=== PATIENT | female | born 1950 | race Caucasian/White ===

== ENCOUNTER 2016-04-03 17:15 | Inpatient (IN) | payer BC ==
--- NOTE | ~2016-04-03 | DS ---
Discharge Summary [facility] [address] [place]. [address] NAME: RACIEL WEBB : 50 STATUS : ADM IN [facility]#: [id number] AGE: 65 ADM/REG DATE : 04/03/16 MR#: [id number] REPORT SERV DATE: 04/08/16 DICTATED BY: RACHAEL NIETO DATE: 04/07/16 REPORT STATUS : Draft TRANSCRIBED BY: MODL DATE: 04/07/16 ADMISSION DATE: 04/03/2016 DISCHARGE DATE: PRINCIPAL DIAGNOSIS: Acute gastroenteritis with intractable nausea, vomiting, diarrhea, abdominal pain, and noncardiac chest pain. SECONDARY DIAGNOSES: 1. Iron-deficiency anemia. 2. Hypovolemia prior with subsequent mild volume overload, following volume resuscitation. 3. History of osteomyelitis. HISTORY OF PRESENT ILLNESS: Please see Dr. Carrero's dictation, 04/03/2016. HOSPITAL COURSE: The patient admitted with intractable nausea, vomiting, and diarrhea with dehydration. The patient received aggressive IV fluids, symptomatic care. Stool studies were all negative for pathogens, for white cells, for blood, parasites or C difficile. No further antibiotics were given. She still had issues with abdominal pain which was more impressive by symptom than by exam. CT exam it was done, which was entirely negative other than some noninfected diverticula. This study was done with contrast which tolerated well. Diet was very difficult to advance. Patient is also limited by some chest pain. Had a negative EKG, negative troponins and she was counseled regarding with the reproducibility of the pain at the presence of the active vomiting or retching anyway. This was felt to be a very low risk for cardiac disease in fact, the of the risk of false positive test on the stress test was actually far greater than true positive, therefore, making the risk of doing the test greater than the benefit, this was not further recommended. She actually was tolerating food well, had no further chest pain or abdominal pain. Did have some shortness of breath. Her Lasix was resumed. Diet was resumed at low-salt, GI soft. She was given some pain medicine and Phenergan to go home with for p.r.n. use and close followup with Dr. Falcon, her primary care provider. Lastly, she was found to be significantly iron deficient. She was guaiac negative but did receive intravenous iron while in the hospital, which she tolerated well. She had a colonoscopy in the past but was encouraged to follow up with Dr. Zayas in the next month or 2 for ongoing surveillance of that condition. She met the maximum benefit of hospitalization by 04/07/2016, who is good condition. DIET: GI soft diet. ACTIVITY: As tolerated. FOLLOWUP: Follow up Dr. Sammy Falcon and Dr. Umang Mcmullen in 1 to 2 months. RSM/TOMÁS Rachael Dunham Discharge Summary [address] [place]. [address] NAME: RACIEL WEBB : 50 STATUS : ADM IN [facility]#: [id number] AGE: 65 ADM/REG DATE : 04/03/16 MR#: [id number] REPORT SERV DATE: 04/08/16 DICTATED BY: RACHAEL NIETO DATE: 04/07/16 REPORT STATUS : Draft TRANSCRIBED BY: MODRadha DATE: 04/07/16 Marguerite Nieto / [id number] CC: Marguerite Crawley MD Sumeet Bhushan, M.D.
--- NOTE | ~2016-04-03 | HP ---
History And Physical [facility] [address] [place]. [address] NAME: RACIEL WEBB : 50 STATUS : ADM Senia PAT#: [id number] AGE: 65 ADM/REG DATE : 04/03/16 MR#: [id number] REPORT SERV DATE: 04/04/16 DICTATED BY: SERGE CARRERO DATE: 04/04/16 REPORT STATUS : Draft TRANSCRIBED BY: MODL DATE: 04/04/16 DATE OF ADMISSION: 04/03/2016 CHIEF COMPLAINT: Abdominal pain, nausea, vomiting, recently completing six weeks of vancomycin IV for osteomyelitis. HPI: The patient is a 65-year-old female with recent completion of vancomycin today for six weeks for osteomyelitis, history of atrial fibrillation, hypertension, thyroid disease, who presents after having initially a week of diarrhea episodes that improved after three days and restarted again approximately 48 hours ago that has been constant, moderate severity with multiple cramping quality. No radiation but associated with nausea, vomiting, diarrhea and has progressive weakness, fatigue, and sweating type episodes. There are no worsening symptoms, but no relieving symptoms are appreciated. Symptoms are also correlated with completion of antibiotic course with multiple watery diarrhea almost having q.1 hour since last night. REVIEW OF SYSTEMS: GENERAL: No fever or chills, but positive for weakness. EYES: No visual change or pain. ENT: No sore throat or congestion. NEURO: No headache or confusion. SKIN: No rash or bruising. RESPIRATORY: No shortness of breath or dyspnea on exertion. CV: No chest pain or palpitations. GI: Noted for nausea, vomiting, diarrhea, abdominal pain, and q.1 hour bowel movements that have been liquidy. : No dysuria, hematuria. Decreased urine output. MUSCULOSKELETAL: Myalgias and arthralgias at baseline. ENDO: Does have fatigue and no polyuria. HEME: No bleeding or bruising. IMMUNOLOGIC: No rhinorrhea. PSYCH: No anxiety or confusion. PAST MEDICAL HISTORY: Recent osteomyelitis on vancomycin with debridement of both feet and transmetatarsal amputations, psoriatic arthritis on Otezla, has coronary artery disease with history of stent, hypertension, hyperlipidemia, peripheral neuropathy, history of opioid abuse, restless leg, LAINEY not on CPAP, hiatal hernia, stomach polyps, MRSA, hypothyroidism, depression, bilateral foot ulcers, nondiabetic, osteomyelitis, atrial fib. SURGICAL HISTORY: Multiple surgical surgeries on feet with amputations transmetatarsally, spinal stimulator, bladder stimulator, bilateral knee surgery, hysterectomy, oophorectomy, cholecystectomy, appendectomy, surgical spine surgery, bladder repair, rotator cuff. SOCIAL HISTORY: Rare alcohol. No tobacco. at bedside. No illicits. ALLERGIES: SULFA AND MORPHINE. History And Physical [address] [address] NAME: RACIEL WEBB : 50 STATUS : ADM Senia PAT#: [id number] AGE: 65 ADM/REG DATE : 04/03/16 MR#: [id number] REPORT SERV DATE: 04/04/16 DICTATED BY: SERGE CARRERO DATE: 04/04/16 REPORT STATUS : Draft TRANSCRIBED BY: TOMÁS DATE: 04/04/16 FAMILY HISTORY: RA, breast cancer, coronary artery disease. HOME MEDICATIONS: Complete list still pending, but did complete vancomycin six week course b.i.d. PHYSICAL EXAMINATION: VITAL SIGNS: Blood pressure 149/77, pulse 77, respirations 20, temperature 98, O2 sats 94%. GENERAL: Weak, ill appearing, fatigued and pale. EYES: No scleral icterus. EOMI. ENT: Dry mucous membranes. Tongue midline. RESPIRATORY: Clear to auscultation. No wheezes or rales. CHEST: Equal chest expansion. CV: Normal cardiac. No rubs or gallops. No pedal edema. GI: Diffusely tender bilaterally, nondistended, negative rebound, hyperactive bowel sounds. : Deferred. MUSCULOSKELETAL: Moves all extremities x4. SKIN: Warm, dry. No acute tenting at this time. LYMPH: No cervical or supraclavicular lymphadenopathy. HEME: No bleeding or bruising. NEURO: Alert and oriented. Moves all extremities x4. Symmetrical strength, but overall generalize somewhat weak due to tiredness. PSYCH: Appropriate mood and affect. LABORATORY DATA: Portable chest, decreased lung volume with bibasilar atelectasis. CBC: WBC count 11, H and H 10.3 and 31.1, platelets 172. CMP: Sodium 142, potassium 3.4, chloride 106, bicarb 26, BUN and creatinine 8 and 0.83, glucose 97. LFTs within normal limits. Lipase 149. Followup stool studies. Leukocytes negative, negative Crypto and Giardia, C. diff negative. Urinalysis within normal limits. EKG: Rate 84, normal sinus rhythm, QTc 408. ASSESSMENT AND PLAN: 1. Nausea and vomiting. 2. Diarrhea. 3. Volume depletion. 4. Recent osteo. 5. Recent antibiotics. 6. Hypokalemia. 7. Hypoalbuminemia. 8. Chronic pain. PLAN: 1. For nausea and vomiting, IV fluids as supportive as patient does appear somewhat volume depleted, has had q.1 hour bowel movements. Differential include C. diff. The patient has been on chronic antibiotics, but additionally may be viral diarrhea and will additionally order stool cultures and stool studies. Continue supportive treatment at [address] [address] NAME: RACIEL WEBB : 50 STATUS : ADM Senia PAT#: [id number] AGE: 65 ADM/REG DATE : 04/03/16 MR#: [id number] REPORT SERV DATE: 04/04/16 DICTATED BY: SERGE CARRERO DATE: 04/04/16 REPORT STATUS : Draft TRANSCRIBED BY: MODL DATE: 04/04/16 this time. Continue to monitor. The patient has had mild hypokalemia with progressive nausea, vomiting, and diarrhea. 2. Diarrhea. Initial presentation consistent with C. diff with recent IV antibiotics and notably different, but foul odor. Check stool studies and supportive treatment at this time. Start vancomycin if confirmed positive. 3. Volume depletion. IV fluids, not tolerating p.o. 4. Recent osteo, completed IV antibiotics. 5. Recent chronic antibiotics, possible clearance of GI eileen, we will check C. diff. 6. Hypokalemia, replace per protocol. 7. Hypoalbuminemia, monitor. 8. Chronic pain, p.r.n. All questions answered with the patient and family at bedside. DDN/MODL Serge Carrero MD / [id number] CC: Marguerite Crawley MD
--- NOTE | ~2016-04-03 | DS ---
Discharge Summary [facility] [address] [place]. [address] NAME: RACIEL WEBB : 50 STATUS : DIS IN PAT#: [id number] AGE: 65 ADM/REG DATE : 04/03/16 MR#: [id number] REPORT SERV DATE: 04/09/16 DICTATED BY: MIKAYLA GUTIERREZ DATE: 04/08/16 REPORT STATUS : Draft TRANSCRIBED BY: MODL DATE: 04/08/16 ADMISSION DATE: 04/03/2016 DISCHARGE DATE: 04/08/2016 ADDENDUM: Addendum to discharge summary dictated by Dr. Huizar on 04/07/2016. ADDITIONAL DIAGNOSES: Hypoxemia secondary to volume overload from gastroenteritis resuscitation. The patient was discharged by Dr. Huizar on 04/07/2016. She complained of being dyspneic. She had ambulatory hypoxemia with saturations as low as 87%. A chest x-ray was done. It demonstrated edema. She was seen by the undersigned. It was noted during her hospitalization that she had a positive fluid intake of 8000 mL with a weight gain of at least 2 kg. She was given IV Lasix and potassium. Her discharge was held. She was seen again on 04/08/2016. She felt better. She was less dyspneic. She was not having chest pain. She was eating without nausea, vomiting, or diarrhea. Her room air sats varied between 91 and 95. Her lungs were clear, heart regular, and she had no edema. BMP: Sodium 142, potassium 4, chloride 104, CO2 of 30, BUN 5, creatinine 0.78, glucose 114, calcium 8.5, mag 2.0. BNP done at 1955 hours on 04/07/2016 was 122.4. Troponin less than 0.02. CBC: White count 9.3, hemoglobin 9.7, (increased from 8.9 on 04/06/2016), and platelets 230,000. She was seen with her . They both thought she could easily manage at home. She is being discharged home today with followup to see Dr. Falcon, Dr. Umang Mcmullen, Dr. Hinojosa, Dr. An Landaverde, Dr. Joo Pulido, Dr. Vaibhav Ty, and Dr. Jaramillo. DISCHARGE MEDICATIONS: Pending outpatient followup with the above-mentioned physicians: Eliquis 5 mg twice daily, Lioresal 10 mg three times daily as needed, Bentyl 10 mg twice daily, Cymbalta 60 mg daily, Neurontin 300 mg a.m. and 600 mg p.m., Klonopin 1 mg at bedtime, Fonda 5/325 twice daily, Synthroid 125 mcg daily, Zyrtec 10 mg daily, metoprolol-XL 100 mg daily, multivitamin daily, Protonix 40 mg twice daily, potassium 10 mEq daily, Pravachol 20 mg daily, simethicone 120 mg three times daily as needed, Klonopin 0.5 mg q.a.m., Lasix 40 mg daily, Zofran 4 mg p.o. or sublingually every 4 hours as needed, Tylenol 650 mg every 4 hours as needed, vitamin B12 at 1000 mcg IM q.30 days, Otezla 30 mg twice daily, hormone pellets injected q.90 days, Mirapex 0.125 mg at night, stopping if development of akathisia. Discharge time greater than 30 minutes. Discharge Summary [address] [address] NAME: RACIEL WEBB : 50 STATUS : DIS IN PAT#: [id number] AGE: 65 ADM/REG DATE : 04/03/16 MR#: [id number] REPORT SERV DATE: 04/09/16 DICTATED BY: MIKAYLA GUTIERREZ DATE: 04/08/16 REPORT STATUS : Draft TRANSCRIBED BY: TOMÁS DATE: 04/08/16 DD/TOMÁS Mikayla Gutierrez M.D. / [id number] CC: Marguerite Crawley MD Richard Brackett, M.D. Sumeet Bhushan, M.D. C. Jason Wamack, D.PMarguerite Carranza M.D. Kirk Brody, M.D.
[2016-04-03 17:13] LABS: BASOPHILS 0.3 %; BASOPHILS ABSOLUTE 0.03 10/3/uL (0.0-0.16); EOSINOPHILS 1.3 %; EOSINOPHILS ABSOLUTE 0.14 10/3/uL (0.0-0.53); HEMATOCRIT 31.1 % (36.0-48.0); HEMOGLOBIN 10.3 g/dL (12.0-16.0); IMMATURE GRANULOCYTES 0.2 %; IMMATURE GRANULOCYTES ABSOLUTE 0.02 10/3/uL (0.0-0.11); LYMPHOCYTES ABSOLUTE 1.32 10/3/uL (0.67-4.30); MEAN CORPUS HGB CONC 33.1 g/dL (32.0-36.0); MEAN CORPUSCULAR HEMOGLOB 29.6 pg (26.0-34.0); MEAN CORPUSCULAR VOLUME 89.4 fL (80-100); MEAN PLATELET VOLUME 10.5 fL (9.2-13.0); MONOCYTES 7.1 %; MONOCYTES ABSOLUTE 0.78 10/3/uL (0.21-1.20); NEUTROPHILS 79.1 %; NEUTROPHILS ABSOLUTE 8.72 10/3/uL (2.02-8.40); PLATELET COUNT 172 10/3/uL (150-400); RBC DISTRIBUTION WIDTH 14.2 % (12.0-16.0); RED CELL COUNT 3.48 10/6/uL (4.0-5.6)
[2016-04-03 17:14] LABS: MANUAL DIFF NO %
[~2016-04-03 17:15] MED LIST: ACET500CAP PO; ADVIL PO; ALAVERT10 MG PO; ALEVE220 MG PO; AMB10 PO; AMIT50 PO; ANASPAZ0.125 MG PO; ARMOUR THYRO90 MG PO; ASA5GR PO; ASAB PO; B-125000 MCG SL; B121000P IM; B121000P IM/SC; B121000P SC; BEN25 PO; BENTYL10 PO; BUSPAR10 PO; BUSPAR15 M1 PO; BUSPAR30 MG PO; CALTRA600D PO; CYMBALTA30 PO; D100 PO; DURA12 TOP; DURA25 TOP; DURA75 TOP; DURICEF PO; DYAZIDE1 CAP PO; EFFEXOR XR150 MG PO; ELIQUIS 5 MG TAB5 MG PO; ENABLEX15 PO; FOLIC PO; GOLIMUMAB; GOLIMUMAB SC; HORMONE PELLETS IM; HORMONE PELLETS SQ; HORMONE THERAPY IM; HUMIRA SC; HYOMAX-SL0.125 MG PO; IRON325 MG PO; K-TABS10 MEQ PO; KLONO1 PO; KLONO5 PO; KLOR-CON M2020 MEQ PO; L40 PO; LEVOTHYROXIN150 MCG PO; LIBRAX PO; LIOR10 PO; LOP50 PO; LORTAB10 PO; MAG-DELAY PO; MAX25 PO; METANX PO; METHOTREXATE25 MG/ML SC; MEXATE250; MIRAPEX1.5 MG PO; MONODOX100 MG PO; MTX2.5 PO; MULTIPLE VIT PO; MULTIVIT/MIN PO; MULTIVITAMI1 PO; Methotrexate SC; NEUR300 PO; NEUR600 PO; NORCO1 TA1 PO; NORV5 PO; OTEZLA PO; P20 PO; P5 PO; PCET PO; PERCOCET1 TA2 PO; PERCOCET1 TA4 PO; PLAVIX PO; PRAVAC PO; PRENAVITE PO; PREV30 PO; PRILO PO; PRILOSEC OTC20 MG PO; PRIN5 PO; PROTONIX PO; REMERON30 MG PO; REMICADE IV; SYN.15 PO; SYN125 PO; T PO; TOPXL100 PO; TOPXL50 PO; TRAZODONE150 MG PO; TRAZODONE300 MG PO; TREXALL10 MG PO; ULTRAM50 PO; VANCOMYCIN IV; VIT B 12; VIT B-SIX 50 MG50 MG PO; VITAMIN B INJ IM; VITAMIN B-12 IM; VITAMIN D1000 UNI1 PO; X5 PO; ZOCOR20 PO; ZOFRAN ODT4 MG PO; ZYRTEC ALLGY10 MG PO
[2016-04-03 17:26] LABS: A/G RATIO 0.6 (0.7-1.9); ALBUMIN 2.5 G/DL (3.5-5.0); ALKALINE PHOSPHATASE 87 U/L (45-117); BUN (BLOOD UREA NITROGEN) 8 MG/DL (6-23); CALCIUM, SERUM 8.3 MG/DL (8.5-10.4); CHLORIDE, SERUM 106 MMOL/L (96-112); CO2 (CARBON DIOXIDE) 26 MMOL/L (24-34); CREATININE 0.83 MG/DL (0.55-1.02); GFR AFRICAN AMERICAN 86 ML/MIN (>=60); GFR NON AFRICAN AMERICAN 74 ML/MIN (>=60); GLOBULIN 4.1 G/DL (2.5-4.1); GLUCOSE, SERUM 97 MG/DL (60-99); POTASSIUM, SERUM 3.4 MMOL/L (3.5-5.3); SGOT(AST) 8 U/L (5-40); SGPT(ALT) 11 U/L (5-65); SODIUM, SERUM 142 MMOL/L (135-148); TOTAL BILIRUBIN 0.3 MG/DL (0-1.2); TOTAL PROTEIN 6.6 G/DL (6.0-8.5)
[2016-04-03] MEDS ORDERED: BENTYL10 PO (20:23)
[2016-04-03] MEDS ORDERED: NEUR300 PO (20:25)
[2016-04-03] MEDS ORDERED: L40 PO (20:25)
[2016-04-03] MEDS ORDERED: CYMBALTA30 PO (20:25)
[2016-04-03] MEDS ORDERED: NORCO1 TA1 PO (20:26)
[2016-04-03] MEDS ORDERED: SYN125 PO (20:26)
[2016-04-03] MEDS ORDERED: ZOFRAN ODT4 MG PO/SL (20:27)
[2016-04-03] MEDS ORDERED: TOPXL100 PO (20:27)
[2016-04-03] MEDS ORDERED: KLONO5 PO (20:28)
[2016-04-03] MEDS ORDERED: ELIQUIS 5 MG TAB5 MG PO (20:28)
[2016-04-03] MEDS ORDERED: T PO (20:28)
[2016-04-03] MEDS ORDERED: KLONO1 PO (20:28)
[2016-04-03] MEDS ORDERED: ZYRTEC ALLGY10 MG PO (20:28)
[2016-04-03] MEDS ORDERED: LIOR10 PO (20:28)
[2016-04-03] MEDS ORDERED: KDUR10 PO (20:29)
[2016-04-03] MEDS ORDERED: B121000P IM/SC (20:29)
[2016-04-03] MEDS ORDERED: PROTONIX PO (20:29)
[2016-04-03] MEDS ORDERED: VIT B-SIX 50 MG50 MG PO (20:30)
[2016-04-03] MEDS ORDERED: PRAVAC PO (20:30)
[2016-04-03] MEDS ORDERED: PRENAVITE PO (20:30)
[2016-04-03] MEDS ORDERED: OTEZLA 30 MG PO (20:30)
[2016-04-03] MEDS ORDERED: VANCOMYCIN IV (20:31)
[2016-04-03] MEDS ORDERED: HORMONE PELLETS IM (20:31)
[2016-04-03 21:25] LABS: WBC (NOT ORDERED) (RFLEX) 0 (0-5)
[2016-04-03 21:38] LABS: ASCORBIC ACID (UR NOT ORDER) NEG (NEG); BILIRUBIN, URINE NEGATIVE (NEG); ER URINALYSIS TAT 0 Hrs 13 Mins; KETONE, URINE TRACE MG/DL (NEG); LEUKOCYTE ESTERASE(NOT OR NEG (NEG); NITRITE (URINE) NEG (NEG)
[2016-04-04 06:26] LABS: BASOPHILS 0.5 %; BASOPHILS ABSOLUTE 0.04 10/3/uL (0.0-0.16); EOSINOPHILS ABSOLUTE 0.24 10/3/uL (0.0-0.53); IMMATURE GRANULOCYTES 0.2 %; IMMATURE GRANULOCYTES ABSOLUTE 0.02 10/3/uL (0.0-0.11); LYMPHOCYTES 32.5 %; LYMPHOCYTES ABSOLUTE 2.63 10/3/uL (0.67-4.30); MEAN CORPUSCULAR HEMOGLOB 28.7 pg (26.0-34.0); MEAN CORPUSCULAR VOLUME 89.5 fL (80-100); MEAN PLATELET VOLUME 11.3 fL (9.2-13.0); MONOCYTES ABSOLUTE 0.65 10/3/uL (0.21-1.20); NEUTROPHILS 55.8 %; PLATELET COUNT 156 10/3/uL (150-400); RBC DISTRIBUTION WIDTH 14.3 % (12.0-16.0); RED CELL COUNT 2.86 10/6/uL (4.0-5.6); WHITE BLOOD CELLS 8.1 10/3/uL (4.5-10.5)
[2016-04-04 06:29] LABS: HEMATOCRIT 25.6 % (36.0-48.0); HEMOGLOBIN 8.2 g/dL (12.0-16.0); MANUAL DIFF NO %
[2016-04-04 13:09] LABS: HEMOGLOBIN 9.2 g/dL (12.0-16.0)
[2016-04-04 13:11] LABS: HEMATOCRIT 28.3 % (36.0-48.0)
[2016-04-04 17:44] LABS: HEMATOCRIT 26.9 % (36.0-48.0); HEMOGLOBIN 8.6 g/dL (12.0-16.0)
[2016-04-05 00:44] LABS: HEMOGLOBIN 8.5 g/dL (12.0-16.0); RETICULOCYTE COUNT 1.3 % (0.5-2.5); RETICULOCYTE COUNT ABSOLUTE 36.8 10/3/uL (20.2-119.8)
[2016-04-05 01:20] LABS: FERRITIN 61 NG/ML (8-252); IRON BINDING CAPACITY 379 MCG/DL (225-410)
[2016-04-05 01:26] LABS: % IRON SAT 10 % (20-50); IRON, SERUM 39 MCG/DL (35-150)
[2016-04-05 07:00] LABS: HEMOGLOBIN 9.9 g/dL (12.0-16.0)
[2016-04-05 07:05] LABS: HEMATOCRIT 30.4 % (36.0-48.0)
[2016-04-06 07:12] LABS: BASOPHILS 0.5 %; BASOPHILS ABSOLUTE 0.05 10/3/uL (0.0-0.16); EOSINOPHILS 3.8 %; EOSINOPHILS ABSOLUTE 0.35 10/3/uL (0.0-0.53); HEMOGLOBIN 8.9 g/dL (12.0-16.0); IMMATURE GRANULOCYTES 0.4 %; IMMATURE GRANULOCYTES ABSOLUTE 0.04 10/3/uL (0.0-0.11); LYMPHOCYTES 28.5 %; LYMPHOCYTES ABSOLUTE 2.66 10/3/uL (0.67-4.30); MEAN CORPUS HGB CONC 33.6 g/dL (32.0-36.0); MEAN PLATELET VOLUME 10.6 fL (9.2-13.0); MONOCYTES 7.7 %; MONOCYTES ABSOLUTE 0.72 10/3/uL (0.21-1.20); NEUTROPHILS 59.1 %; PLATELET COUNT 174 10/3/uL (150-400); RBC DISTRIBUTION WIDTH 14.2 % (12.0-16.0); RED CELL COUNT 3.07 10/6/uL (4.0-5.6); WHITE BLOOD CELLS 9.3 10/3/uL (4.5-10.5)
[2016-04-06 07:13] LABS: HEMATOCRIT 26.5 % (36.0-48.0); MANUAL DIFF NO %; MEAN CORPUSCULAR VOLUME 86.3 fL (80-100)
[2016-04-06 07:24] LABS: BUN (BLOOD UREA NITROGEN) 5 MG/DL (6-23); CALCIUM, SERUM 7.6 MG/DL (8.5-10.4); CHLORIDE, SERUM 111 MMOL/L (96-112); CO2 (CARBON DIOXIDE) 22 MMOL/L (24-34); CREATININE 0.76 MG/DL (0.55-1.02); GFR AFRICAN AMERICAN 95 ML/MIN (>=60); GFR NON AFRICAN AMERICAN 82 ML/MIN (>=60); GLUCOSE, SERUM 109 MG/DL (60-99); POTASSIUM, SERUM 3.3 MMOL/L (3.5-5.3); SODIUM, SERUM 143 MMOL/L (135-148)
[2016-04-06 17:17] LABS: POTASSIUM, SERUM 3.6 MMOL/L (3.5-5.3); TROPONIN I <0.02 NG/ML (<0.05)
[2016-04-07 06:36] LABS: BUN (BLOOD UREA NITROGEN) 3 MG/DL (6-23); CALCIUM, SERUM 8.1 MG/DL (8.5-10.4); CHLORIDE, SERUM 108 MMOL/L (96-112); CO2 (CARBON DIOXIDE) 23 MMOL/L (24-34); GFR AFRICAN AMERICAN 90 ML/MIN (>=60); GFR NON AFRICAN AMERICAN 77 ML/MIN (>=60); GLUCOSE, SERUM 113 MG/DL (60-99); SODIUM, SERUM 141 MMOL/L (135-148); TROPONIN I <0.02 NG/ML (<0.05)
[2016-04-07] MEDS ORDERED: PR25R PR (10:16)
[2016-04-07] MEDS ORDERED: MYLICON 80 MG T80 MG PO (10:25)
[2016-04-07] MEDS ORDERED: OTEZLA PO (10:26)
[2016-04-07] MEDS ORDERED: HORMONE PELLET (10:27)
[2016-04-07] MEDS ORDERED: MVI PO (10:33)
[2016-04-07] MEDS ORDERED: L40 PO (16:44)
[2016-04-08 05:28] LABS: BASOPHILS 0.4 %; BASOPHILS ABSOLUTE 0.04 10/3/uL (0.0-0.16); EOSINOPHILS 4.6 %; EOSINOPHILS ABSOLUTE 0.43 10/3/uL (0.0-0.53); HEMOGLOBIN 9.7 g/dL (12.0-16.0); IMMATURE GRANULOCYTES 0.5 %; IMMATURE GRANULOCYTES ABSOLUTE 0.05 10/3/uL (0.0-0.11); LYMPHOCYTES 22.9 %; LYMPHOCYTES ABSOLUTE 2.12 10/3/uL (0.67-4.30); MEAN CORPUS HGB CONC 32.2 g/dL (32.0-36.0); MEAN CORPUSCULAR HEMOGLOB 28.7 pg (26.0-34.0); MEAN PLATELET VOLUME 10.6 fL (9.2-13.0); MONOCYTES 9.1 %; MONOCYTES ABSOLUTE 0.84 10/3/uL (0.21-1.20); NEUTROPHILS 62.5 %; NEUTROPHILS ABSOLUTE 5.79 10/3/uL (2.02-8.40); RBC DISTRIBUTION WIDTH 14.4 % (12.0-16.0); RED CELL COUNT 3.38 10/6/uL (4.0-5.6); WHITE BLOOD CELLS 9.3 10/3/uL (4.5-10.5)
[2016-04-08 05:29] LABS: HEMATOCRIT 30.1 % (36.0-48.0); MANUAL DIFF NO %; MEAN CORPUSCULAR VOLUME 89.1 fL (80-100); PLATELET COUNT 230 10/3/uL (150-400); RETICULOCYTE COUNT 2.4 % (0.5-2.5); RETICULOCYTE COUNT ABSOLUTE 81.8 10/3/uL (20.2-119.8)
[2016-04-08 05:34] LABS: BUN (BLOOD UREA NITROGEN) 5 MG/DL (6-23); CALCIUM, SERUM 8.5 MG/DL (8.5-10.4); CHLORIDE, SERUM 104 MMOL/L (96-112); CREATININE 0.78 MG/DL (0.55-1.02); GFR AFRICAN AMERICAN 92 ML/MIN (>=60); GFR NON AFRICAN AMERICAN 80 ML/MIN (>=60); GLUCOSE, SERUM 114 MG/DL (60-99); SODIUM, SERUM 142 MMOL/L (135-148); TROPONIN I <0.02 NG/ML (<0.05)
[2016-04-08 05:35] LABS: CO2 (CARBON DIOXIDE) 30 MMOL/L (24-34)
[2016-04-08] MEDS ORDERED: L40 PO (15:14)
[2016-04-08] MEDS ORDERED: B121000P SC (15:15)
[2016-04-08] MEDS ORDERED: PR25R PR (15:18)
[2016-04-08] MEDS ORDERED: MIRAPEX125 PO (15:23)
[2016-08-26] MEDS ORDERED: MONODOX100 MG PO (16:12)
[2016-08-26] MEDS ORDERED: NYS500UDL PO (16:12)
[2016-09-14] MEDS ORDERED: NORCO1 TA1 PO (22:29)
[2016-09-14] MEDS ORDERED: REMERON45 MG PO (22:30)
[2016-09-14] MEDS ORDERED: PRIN5 PO (22:30)
[2016-09-14] MEDS ORDERED: MELA3 PO (22:30)
[2016-09-14] MEDS ORDERED: CYMBALTA60 PO (22:30)
[2016-09-14] MEDS ORDERED: B121000P IM/SC (22:30)
[2016-09-14] MEDS ORDERED: KLONO5 PO (22:32)
[2016-09-14] MEDS ORDERED: ULTRAM50 PO (22:32)
[2016-09-14] MEDS ORDERED: BENTYL10 PO (22:32)
[2016-09-14] MEDS ORDERED: TOPXL100 PO (22:32)
[2016-09-14] MEDS ORDERED: KLONO1 PO (22:32)
[2016-09-14] MEDS ORDERED: NEUR300 PO (22:33)
[2016-09-14] MEDS ORDERED: PROTONIX PO (22:33)
[2016-09-14] MEDS ORDERED: BUSPAR15 M1 PO (22:34)
[2016-09-14] MEDS ORDERED: MIRAPEX1.5 MG PO (22:34)
[2016-09-14] MEDS ORDERED: OTEZLA30 MG PO (22:34)
[2016-09-14] MEDS ORDERED: PRAVAC PO (22:35)
[2016-09-14] MEDS ORDERED: ELIQUIS 5 MG TAB5 MG PO (22:35)
[2016-09-14] MEDS ORDERED: SYN125 PO (22:35)
[2016-09-14] MEDS ORDERED: L40 PO (22:35)
[2016-09-14] MEDS ORDERED: KDUR10 PO (22:36)
[2016-09-14] MEDS ORDERED: HORMONE PELLETS IM (22:36)
[2016-09-14] MEDS ORDERED: MULTIVIT/MIN PO (22:36)
[2016-09-14] MEDS ORDERED: PR12.5 PO (22:36)
[2016-09-14] MEDS ORDERED: DUONEB INH (22:37)
[2016-09-14] MEDS ORDERED: BEN25 PO (22:37)
[2016-09-14] MEDS ORDERED: CLARIT10 PO (22:37)
== END 2016-04-08 17:00 | disposition home or self-care (01) | DRG 641 ==
LOC: ER 17:15 → 6NO 19:38
PROVIDERS: Emergency Medicine; Internal Medicine; Student in an Organized Health Care Education/Training Program
DX: E86.0 Dehydration (principal); A08.4 Viral intestinal infection, unspecified; E87.70 Fluid overload, unspecified; F31.60 Bipolar disorder, current episode mixed, unspecified; E87.6 Hypokalemia; R07.89 Other chest pain; D50.9 Iron deficiency anemia, unspecified; R09.02 Hypoxemia; L40.50 Arthropathic psoriasis, unspecified; I25.10 Atherosclerotic heart disease of native coronary artery without angina pectoris; G62.9 Polyneuropathy, unspecified; F32.9 Major depressive disorder, single episode, unspecified; G47.33 Obstructive sleep apnea (adult) (pediatric); G89.4 Chronic pain syndrome; G25.81 Restless legs syndrome; K57.30 Diverticulosis of large intestine without perforation or abscess without bleeding
CPT/HCPCS: 71010; 74177; 80048; 80053; 81001; 82272; 82565; 82607; 82728; 83540; 83550; 83690; 83735; 83880; 84100; 84132; 84443; 84484; 85014; 85018; 85025; 85045; 87045; 87046; 87046-59; 87328; 87329; 87493; 87493-59; 87899; 87899-59; 89055; 93005; 96374; 96375; 99285; A9270-GY; J1170; J1750; J1940; J2405; J2550; Q9967

== ENCOUNTER 2016-07-03 15:54 | Inpatient (IN) | payer BC ==
--- NOTE | ~2016-07-03 | OP ---
Record Of Operation [facility] [address] [place]. [address] NAME: RACIEL WEBB : 50 STATUS : DIS IN PAT#: [id number] AGE: 66 ADM/REG DATE : 07/03/16 MR#: [id number] REPORT SERV DATE: 07/09/16 DICTATED BY: KALLIE TITUS DATE: 07/09/16 REPORT STATUS : Draft TRANSCRIBED BY: MODL DATE: 07/09/16 DATE OF PROCEDURE: 07/05/2016 PREOPERATIVE DIAGNOSIS: Left 4th and 5th metatarsal osteomyelitis. POSTOPERATIVE DIAGNOSIS: Left 4th and 5th metatarsal osteomyelitis. PROCEDURE: Left foot transmetatarsal amputation. SURGEON: Stephanie WashburnPNikita. ANESTHESIA: General and local anesthetic. ESTIMATED BLOOD LOSS: Minimal. COMPLICATIONS: None. INJECTABLES: Approximately 20 mL of a 1:1 mixture of 1% Xylocaine plain and 0.5% Marcaine plain. CULTURES: Include aerobic, anaerobic, acid fast, fungal, Gram stain. SPECIMENS: Include left 4th and 5th metatarsal with proximal margins. MATERIALS: Include 2-0 and 4-0 Vicryl, skin ang, 4-0 nylon, 7-Vietnamese LEDY drain. PROCEDURE IN DETAIL: Under mild sedation, the patient was brought to the operating room and placed on the operating table in supine position. Following general anesthesia, local anesthesia obtained about the patient's left foot. Left foot, ankle, and lower leg were scrubbed, prepped, and draped in usual aseptic manner. Attention was directed to the procedure. Procedure #1 is left transmetatarsal amputation. Attention was directed to the dorsal and plantar aspect of the patient's left foot where previous digital amputations had been performed. At this time, a skin incision was made beginning dorsally at the level of the midshaft of the 1st through 5th metatarsals and a plantar flap was then preserved. This fish-mouth type incision was continued sharp to bone with care being taken to identify and cauterize all neurovascular bundles. Sharp dissection was continued down to the level of bone, and the flexor and extensor tendons were incised sharply. At this time, exposure dorsally of the metatarsals 1 through 5 was performed and at this time, a sagittal saw was utilized to create an osteotomy in a slight oblique angle from dorsal distal to proximal plantar. At this time, all the metatarsals were then excised with a tissue plane created between the subcutaneous plantar fat pad and the flexor tendons. After complete amputation of the distal metatarsals, plantar flap was preserved. At this time, pulse lavage ensued and deep cultures were taken. The metatarsals were sent as well as proximal margins of the 4th and 5th metatarsals. Again after copious irrigation, attention was directed to the full Record Of Operation [address] [address] NAME: RACIEL WEBB : 50 STATUS : DIS IN PAT#: [id number] AGE: 66 ADM/REG DATE : 07/03/16 MR#: [id number] REPORT SERV DATE: 07/09/16 DICTATED BY: KALLIE TITUS DATE: 07/09/16 REPORT STATUS : Draft TRANSCRIBED BY: TOMÁS DATE: 07/09/16 thickness closure with 2-0 Vicryl. The plantar flap was then advanced dorsally. A 7-Vietnamese LEDY drain was inserted and the skin was reapproximated and coapted utilizing a combination of 4-0 nylon and skin ang. A well-padded sterile dressing and well padded CAM walker was placed about the patient's left foot and ankle. The patient tolerated the procedure and anesthesia well and was transferred to recovery room with vital signs stable and vascular status intact. Following a period of postoperative monitoring, the patient will be transferred to the floor resuming preoperative antibiotics. Strict nonweightbearing at all times. Ice and elevate as directed. I will follow up with the patient while in the floor. VAHE/TOMÁS Stephanie WashburnPNikita. / [id number] CC: Manolo Washburn MD
--- NOTE | ~2016-07-03 | CN ---
Consultation Report [facility] [address] [place]. [address] NAME: RACIEL WEBB : 50 STATUS : ADM IN [facility]#: [id number] AGE: 66 ADM/REG DATE : 07/03/16 MR#: [id number] REPORT SERV DATE: 07/04/16 DICTATED BY: TONI JOHN DATE: 07/03/16 REPORT STATUS : Draft TRANSCRIBED BY: MODL DATE: 07/03/16 CONSULTATION NOTE. DATE OF CONSULTATION: REASON FOR ADMISSION: Direct admission from Dr. Ty's clinic for I and D and possible amputation of her left foot. REASON FOR CONSULTATION: Medical management. HISTORY OF PRESENT ILLNESS: A 66-year-old white female with a history of paroxysmal atrial fibrillation, not currently in sinus rhythm, on long-term Eliquis, followed by Dr. An Landaverde, hypertension, thyroid disease, psoriatic arthritis on Otezla along with history of MA, status post PCI in 2007, obstructive sleep apnea, on CPAP with recurrent left foot cellulitis and possible osteomyelitis. The patient follows closely with Dr. Ty. [facility] which showed focal uptake of tagged red blood cells over the skin and subcutaneous tissue of the lateral left forefoot overlying the left fifth toe suggesting focal infection. Dr. Ty was concerned for osteomyelitis as he was able to probe through her ulcer. The patient has been off Eliquis since yesterday in anticipation having surgery. The patient denies any nausea, vomiting, chest pain, shortness of breath, diarrhea, fever or chills. PAST MEDICAL HISTORY: Psoriatic arthritis, followed by Dr. Pulido, on Otezla, coronary artery disease, status post PCI in 2007, hypertension, hyperlipidemia, neuropathy, restless legs syndrome, obstructive sleep apnea on CPAP, hiatal hernia with stomach polyps seen by Dr. Mcmullen, MRSA infection, hypothyroidism, depression, multiple foot ulcers. PAST SURGICAL HISTORY: Osteomyelitis surgery with amputation of bilateral toes, spinal stimulator, bladder stimulator, right knee surgery, hysterectomy with oophorectomy, cholecystectomy, appendectomy, cervical spine surgery, bladder repair, rotator cuff repair. ALLERGIES: TO SULFA, MORPHINE, AND PENICILLIN. SOCIAL HISTORY: Rare alcohol use. No tobacco use. She is . is in good health. They have children. FAMILY HISTORY: Daughter with rheumatoid arthritis. MEDICATIONS: Medications are being reviewed. PHYSICAL EXAMINATION: VITAL SIGNS: Blood pressure is 109/56, temperature is 97.8, pulse is 78. GENERAL: She is no acute distress. Alert and oriented x3. Very pleasant. HEENT: Normocephalic, atraumatic head. Extraocular muscles are intact. Oropharynx is Consultation Report [address] [place]. [address] NAME: RACIEL WEBB : 50 STATUS : ADM IN [facility]#: [id number] AGE: 66 ADM/REG DATE : 07/03/16 MR#: [id number] REPORT SERV DATE: 07/04/16 DICTATED BY: TONI JOHN DATE: 07/03/16 REPORT STATUS : Draft TRANSCRIBED BY: TOMÁS DATE: 07/03/16 clear. NECK: Supple. No JVD. CARDIAC: Regular rhythm. No murmurs, rubs, or gallops. PULMONARY: Clear to auscultation bilaterally. ABDOMEN: Soft, nontender, nondistended. Positive bowel sounds. EXTREMITIES: Extremities show amputation of all toes in her right foot, left foot got an Martin bandage wrapping. SKIN: Warm and dry. PSYCHIATRIC: The patient is cooperative. Mood is appropriate. LABORATORY DATA: Pending. IMPRESSION: 1. Left foot cellulitis with possible osteomyelitis. 2. Paroxysmal atrial fibrillation, on Eliquis, currently in sinus rhythm. 3. Psoriatic arthritis, on Otezla. 4. History of myocardial infarction, status post PCI 2007. 5. Sleep apnea, on CPAP. PLAN: Okay to hold Eliquis until after surgery. Potential surgery pending on Wednesday per Dr. yT. We will start her on subcu heparin for DVT prophylaxis. I would agree with Dr. Mendoza in holding off antibiotics until surgical cultures are obtained as the patient is nontoxic appearing and not septic. Thank you very much for this consult. We will continue to follow. ELOINA/TOMÁS Toni John MD / [id number] CC: C. Manolo Bridges MD Richard Brackett, M.D. An Landaverde M.D.
--- NOTE | ~2016-07-03 | DS ---
Discharge Summary [facility] [address] [place]. [address] NAME: RACIEL WEBB : 50 STATUS : DIS IN PAT#: [id number] AGE: 66 ADM/REG DATE : 07/03/16 MR#: [id number] REPORT SERV DATE: 07/16/16 DICTATED BY: KALLIE TITUS DATE: 07/15/16 REPORT STATUS : Draft TRANSCRIBED BY: TOMÁS DATE: 07/15/16 Data Collection from hospitalization DISCHARGE DIAGNOSES: 1. Left fourth and fifth metatarsal osteomyelitis. 2. Hypertension. 3. Psoriatic arthritis. 4. Coronary artery disease. 5. Hyperlipidemia. 6. Neuropathy. 7. Restless legs syndrome. 8. Obstructive sleep apnea. 9. Hiatal hernia with stomach polyps. 10.History of methicillin-resistant Staphylococcus aureus infection. 11.Hypothyroidism. 12.Depression. 13.Multiple foot ulcers. CONSULTATIONS: Dr. Amor John, Dr. Guille Mendoza. PROCEDURES PERFORMED: Left foot transmetatarsal amputation, 07/05/2016. PATHOLOGY: Bone, fifth metatarsal proximal margin biopsy-viable bone, negative for inflammation; bone, fourth metatarsal proximal margin biopsy-viable bone, negative for inflammation; left distal foot transmetatarsal amputation-status post previous multiple toe amputation; julio c ulceration with underlying scarring and active osteomyelitis; all bone margins are viable and free of inflammation. MEDICATIONS: Eliquis 5 mg twice a day, BuSpar 15 mg three times a day, Klonopin 0.5 mg every morning and 1 mg at bedtime, vitamin B12 1000 mcg subcutaneously every 30 days, Bentyl 10 mg twice a day, Benadryl 25 mg daily as needed, Monodox 100 mg twice a day, Cymbalta 60 mg daily, Lasix 40 mg daily, Neurontin 900 mg at bedtime, Edelstein 5/325 one tablet twice a day as needed, levothyroxine 125 mcg daily, Claritin 10 mg daily, Toprol-XL 100 mg daily, Remeron 45 mg at bedtime, multivitamins one tablet daily, K-Tab 10 mEq daily, Mirapex 1.5 mg three times a day, Ultram 50 mg three times a day as needed, Otezla 30 mg twice a day, hormone pellet as instructed. CONDITION AT DISCHARGE: Stable. DISPOSITION: The patient was discharged home on a regular diet with activities as instructed. She would follow up with me, 07/20/2016 and would follow up with her primary care provider as needed. HOSPITAL COURSE: This is a 66-year-old female, who has a history of psoriatic arthritis for which she is on Otezla. The patient had undergone a right transmetatarsal amputation on 02/21/2016 and excision of left metatarsal head in February 2016. She had previous left TMA. Cultures at that time had grown MRSA. She had undergone a prolonged course of IV vancomycin. Over the past 10 days prior to this admission, she developed worsening of the Discharge Summary [facility] [id number] [place]. [address] NAME: RACIEL WEBB : 50 STATUS : DIS IN [facility]#: [id number] AGE: 66 ADM/REG DATE : 07/03/16 MR#: [id number] REPORT SERV DATE: 07/16/16 DICTATED BY: KALLIE TITUS DATE: 07/15/16 REPORT STATUS : Draft TRANSCRIBED BY: TOMÁS DATE: 07/15/16 wound of the left lateral foot. [facility] was consistent with possible osteomyelitis of the left fifth metatarsal. She was started on clindamycin, but tolerated this poorly. I saw her in the office on the day of this admission and elected to admit her to the hospital with plans for surgery and probable removal of the left fifth metatarsal at this time. She was admitted to the hospital for further evaluation and treatment. Upon admission, she was seen by Dr. Guille Mendoza regarding her foot infection. Her white blood cell count was 10.4. Wound culture had been obtained and was pending. His impression included probable osteomyelitis of the left fifth metatarsal with associated mild cellulitis of the foot in an immunocompromised patient, who has a history of methicillin-resistant Staphylococcus aureus infection. Vancomycin was started. We would await outpatient cultures. He did not think we would need to broaden antibiotic coverage at this point pending those cultures. The patient was also seen by Dr. Amor John regarding medical management. The Ceretec whole-body scan had shown focal uptake of packed red blood cells over the skin and subcutaneous tissue of the lateral left forefoot overlying the left fifth toe suggesting focal infection. There was concern for osteomyelitis. The patient had been off Eliquis since the day prior to this admission and anticipation of having surgery. Eliquis would be held until after surgery. She was going to be started on subcutaneous heparin for DVT prophylaxis. The patient was nontoxic appearing and not septic. The following day, she had she was feeling okay. Plans were being made to proceed with surgical intervention. IV vancomycin was continued. Eliquis remained on hold. She would be continued on her Otezla. She was evaluated by Physical Therapy. She had no new complaints. She remained afebrile. Her cellulitis had resolved. On 07/05/2016, she was taken to the operating room, where she underwent the above-mentioned procedure. She tolerated this well and there were no complications. Discharge planning was performed. On 07/06/2016, she remained afebrile. Operative cultures were negative to date. Her pain was well controlled. She had no GI symptoms at this time. Doxycycline would be provided. Eliquis was going to be restarted. She was reevaluated by Physical Therapy. Discharge instructions were given. Due to her improved and stable condition, she was discharged home with the above-stated instructions. Information collected by: Cristal Garay I submit the above information as my discharge summary. GAUTAM/TOMÁS Adria Titus D.P.M. / [id number] CC: Manolo Washburn MD Hal Hill, M.D.
--- NOTE | ~2016-07-03 | CN ---
Consultation Report [facility] [address] [place]. [address] NAME: RACIEL WEBB : 50 STATUS : ADM IN PAT#: [id number] AGE: 66 ADM/REG DATE : 07/03/16 MR#: [id number] REPORT SERV DATE: 07/03/16 DICTATED BY: MAK MENDOZA DATE: 07/03/16 REPORT STATUS : Draft TRANSCRIBED BY: MODL DATE: 07/03/16 INFECTIOUS DISEASE CONSULTATION DATE OF CONSULTATION: 07/03/2016 REASON FOR CONSULTATION: Foot infection. HISTORY OF PRESENT ILLNESS: This is a 66-year-old female with a past medical history notable for psoriatic arthritis for which she is on Otezla. She was seen by Dr. Hagan during her 02/2016 admission when she had osteomyelitis of both feet. She underwent right transmetatarsal amputation on 02/20 and also had excision of the left metatarsal head at that time. She had previous left TMA, I believe. Cultures at that time did grow MRSA. She received a prolonged course of IV vancomycin. More recently, over the past 10 days, she has developed worsening wound of her left lateral foot. This led to a [facility] white blood cell scan on 07/01/2016 which was consistent with possible osteomyelitis of the left 5th metatarsal. The patient had been started on clindamycin a few days ago, but tolerated poorly, and her last dose was yesterday. She was seen by Dr. Ty and admitted to the hospital today with plans for surgery and probable removal of the left 5th metatarsal this weekend. She denies any fevers, chills, or sweats. The wound according to Dr. Ty can be probed to bone. PAST MEDICAL HISTORY: In addition to the above is notable for atrial fibrillation, hypertension, coronary artery disease with stenting, hyperlipidemia, peripheral neuropathy, restless legs syndrome, hiatal hernia, and hypothyroidism. OTHER SURGERIES: Include hysterectomy, oophorectomy, cholecystectomy, appendectomy, bladder repair, rotator cuff surgery, and some spine surgery. ALLERGIES: SHE IS INTOLERANT OF SULFA IT CAUSES NAUSEA. SHE HAS SIMILAR SYMPTOMS WITH AUGMENTIN. MEDICATIONS: Outpatient medications are not presently available other than the Otezla, but previous discharge medications are reviewed. SOCIAL HISTORY: She lives with her , who is here in the room with her. Rare alcohol. Nonsmoker. FAMILY HISTORY: Noncontributory. REVIEW OF SYSTEMS: No chest pain or shortness of breath. No diarrhea. She does have some swelling of not only the left foot, but the left lower leg over the past 10 days. She also notes a new area of minor breakdown of the skin of the right medial foot. No drainage. Consultation Report [facility] [id number] [place]. [address] NAME: RACIEL WEBB : 50 STATUS : ADM IN [facility]#: [id number] AGE: 66 ADM/REG DATE : 07/03/16 MR#: [id number] REPORT SERV DATE: 07/03/16 DICTATED BY: MAK MENDOZA DATE: 07/03/16 REPORT STATUS : Draft TRANSCRIBED BY: TOMÁS DATE: 07/03/16 PHYSICAL EXAMINATION: GENERAL: The patient is alert, oriented, in no acute distress. VITAL SIGNS: She is afebrile. Blood pressure 109/56, pulse 78, respiratory rate 16, and weight 77 kg. HEAD AND NECK: Shows clear oral cavity. LUNGS: Clear to auscultation. CARDIAC: Regular rate and rhythm with a soft systolic murmur at the aortic area. ABDOMEN: Soft, nontender. Decreased bowel sounds. EXTREMITIES: The left foot shows it is status post TMA. There is a wound of the lateral aspect with exposed subcutaneous tissue. I did not probe it myself. Surrounding this, there is mild erythema of the skin and associated warmth, and she does have warmth on into her lower leg. There is edema of the lower leg and foot. The right foot shows superficial dry wound on the medial aspect without surrounding inflammatory changes. The patient has a Port-A-Cath in the left upper chest. LABORATORY STUDIES: From admission show a creatinine of 0.94. White blood cell count 10.4, hemoglobin 9.7, platelets 305. Wound culture from today is pending. Ceretec scan as noted. IMPRESSION: Probable osteomyelitis of the left 5th metatarsal with associated mild cellulitis of the foot in an immunocompromised patient who has a history of methicillin- resistant staphylococcus aureus infection. PLAN: 1. We will begin vancomycin. 2. Await outpatient cultures from today. 3. I do not think we need to broaden antibiotic coverage at this point pending those cultures. 4. Await surgical findings. SOCO/TOMÁS Mak Mendoza M.D. / [id number] CC: Manolo Washburn MD
[~2016-07-03 15:54] MED LIST changes: +HORMONE PELLET; +KDUR10 PO; +MIRAPEX125 PO; +MVI PO; +MYLICON 80 MG T80 MG PO; +OTEZLA 30 MG PO; +PR25R PR; +ZOFRAN ODT4 MG PO/SL
[2016-07-03 18:03] LABS: BASOPHILS 0.4 %; BASOPHILS ABSOLUTE 0.04 10/3/uL (0.0-0.16); EOSINOPHILS 2.1 %; EOSINOPHILS ABSOLUTE 0.22 10/3/uL (0.0-0.53); HEMATOCRIT 29.8 % (36.0-48.0); HEMOGLOBIN 9.7 g/dL (12.0-16.0); IMMATURE GRANULOCYTES 0.5 %; IMMATURE GRANULOCYTES ABSOLUTE 0.05 10/3/uL (0.0-0.11); LYMPHOCYTES 24.3 %; LYMPHOCYTES ABSOLUTE 2.51 10/3/uL (0.67-4.30); MEAN CORPUS HGB CONC 32.6 g/dL (32.0-36.0); MEAN CORPUSCULAR HEMOGLOB 29.5 pg (26.0-34.0); MEAN CORPUSCULAR VOLUME 90.6 fL (80-100); MEAN PLATELET VOLUME 10.2 fL (9.2-13.0); MONOCYTES 7.6 %; MONOCYTES ABSOLUTE 0.79 10/3/uL (0.21-1.20); NEUTROPHILS 65.1 %; NEUTROPHILS ABSOLUTE 6.74 10/3/uL (2.02-8.40); RBC DISTRIBUTION WIDTH 14.4 % (12.0-16.0); RED CELL COUNT 3.29 10/6/uL (4.0-5.6); WHITE BLOOD CELLS 10.4 10/3/uL (4.5-10.5)
[2016-07-03 18:04] LABS: MANUAL DIFF NO %; PLATELET COUNT 305 10/3/uL (150-400)
[2016-07-03] MEDS ORDERED: ULTRAM50 PO (18:08)
[2016-07-03] MEDS ORDERED: BUSPAR15 M1 PO (18:08)
[2016-07-03] MEDS ORDERED: TOPXL100 PO (18:08)
[2016-07-03 18:09] LABS: BUN (BLOOD UREA NITROGEN) 10 MG/DL (6-23); CALCIUM, SERUM 8.8 MG/DL (8.5-10.4); CHLORIDE, SERUM 106 MMOL/L (96-112); CO2 (CARBON DIOXIDE) 27 MMOL/L (24-34); CREATININE 0.94 MG/DL (0.55-1.02); GFR AFRICAN AMERICAN 73 ML/MIN (>=60); GFR NON AFRICAN AMERICAN 63 ML/MIN (>=60); GLUCOSE, SERUM 126 MG/DL (60-99); POTASSIUM, SERUM 3.7 MMOL/L (3.5-5.3); SODIUM, SERUM 140 MMOL/L (135-148)
[2016-07-03] MEDS ORDERED: BEN25 PO (18:09)
[2016-07-03] MEDS ORDERED: CLARIT10 PO (18:09)
[2016-07-03] MEDS ORDERED: MIRAPEX1.5 MG PO (18:09)
[2016-07-03] MEDS ORDERED: ELIQUIS 5 MG TAB5 MG PO (18:09)
[2016-07-03] MEDS ORDERED: REMERON45 MG PO (18:09)
[2016-07-03] MEDS ORDERED: NEUR300 PO (18:10)
[2016-07-03] MEDS ORDERED: CYMBALTA60 PO (18:10)
[2016-07-03] MEDS ORDERED: L40 PO (18:10)
[2016-07-03] MEDS ORDERED: KLONO5 PO (18:10)
[2016-07-03] MEDS ORDERED: BENTYL10 PO (18:10)
[2016-07-03] MEDS ORDERED: KLONO1 PO (18:10)
[2016-07-03] MEDS ORDERED: K-TABS10 MEQ PO (18:11)
[2016-07-03] MEDS ORDERED: NORCO1 TA1 PO (18:11)
[2016-07-03] MEDS ORDERED: LEVOTHYROXIN125 MCG PO (18:11)
[2016-07-03] MEDS ORDERED: MULTIVITAMI1 PO (18:11)
[2016-07-05 05:09] LABS: HEMATOCRIT 32.2 % (36.0-48.0); HEMOGLOBIN 10.6 g/dL (12.0-16.0)
[2016-07-05 05:14] LABS: BUN (BLOOD UREA NITROGEN) 14 MG/DL (6-23); CALCIUM, SERUM 8.8 MG/DL (8.5-10.4); CHLORIDE, SERUM 105 MMOL/L (96-112); CO2 (CARBON DIOXIDE) 31 MMOL/L (24-34); GFR AFRICAN AMERICAN 77 ML/MIN (>=60); GFR NON AFRICAN AMERICAN 67 ML/MIN (>=60); GLUCOSE, SERUM 111 MG/DL (60-99); SODIUM, SERUM 140 MMOL/L (135-148)
[2016-07-06] MEDS ORDERED: MONODOX100 MG PO (14:59)
[2016-08-26] MEDS ORDERED: MONODOX100 MG PO (16:12)
[2016-08-26] MEDS ORDERED: NYS500UDL PO (16:12)
[2016-09-14] MEDS ORDERED: NORCO1 TA1 PO (22:29)
[2016-09-14] MEDS ORDERED: MELA3 PO (22:30)
[2016-09-14] MEDS ORDERED: PRIN5 PO (22:30)
[2016-09-14] MEDS ORDERED: CYMBALTA60 PO (22:30)
[2016-09-14] MEDS ORDERED: REMERON45 MG PO (22:30)
[2016-09-14] MEDS ORDERED: B121000P IM/SC (22:30)
[2016-09-14] MEDS ORDERED: KLONO1 PO (22:32)
[2016-09-14] MEDS ORDERED: TOPXL100 PO (22:32)
[2016-09-14] MEDS ORDERED: ULTRAM50 PO (22:32)
[2016-09-14] MEDS ORDERED: BENTYL10 PO (22:32)
[2016-09-14] MEDS ORDERED: KLONO5 PO (22:32)
[2016-09-14] MEDS ORDERED: NEUR300 PO (22:33)
[2016-09-14] MEDS ORDERED: PROTONIX PO (22:33)
[2016-09-14] MEDS ORDERED: OTEZLA30 MG PO (22:34)
[2016-09-14] MEDS ORDERED: MIRAPEX1.5 MG PO (22:34)
[2016-09-14] MEDS ORDERED: BUSPAR15 M1 PO (22:34)
[2016-09-14] MEDS ORDERED: L40 PO (22:35)
[2016-09-14] MEDS ORDERED: ELIQUIS 5 MG TAB5 MG PO (22:35)
[2016-09-14] MEDS ORDERED: SYN125 PO (22:35)
[2016-09-14] MEDS ORDERED: PRAVAC PO (22:35)
[2016-09-14] MEDS ORDERED: PR12.5 PO (22:36)
[2016-09-14] MEDS ORDERED: MULTIVIT/MIN PO (22:36)
[2016-09-14] MEDS ORDERED: KDUR10 PO (22:36)
[2016-09-14] MEDS ORDERED: HORMONE PELLETS IM (22:36)
[2016-09-14] MEDS ORDERED: DUONEB INH (22:37)
[2016-09-14] MEDS ORDERED: CLARIT10 PO (22:37)
[2016-09-14] MEDS ORDERED: BEN25 PO (22:37)
== END 2016-07-06 15:49 | disposition home or self-care (01) | DRG 475 ==
LOC: 5SO 15:54
PROVIDERS: Podiatrist Foot & Ankle Surgery
PROC: 0Y6N0ZF Detachment at Left Foot, Partial 5th Ray, Open Approach (ICD-10-PCS; 2016-07-05)
PROC: 0Y6N0ZD Detachment at Left Foot, Partial 4th Ray, Open Approach (ICD-10-PCS; principal; 2016-07-05 07:45)
DX: M86.8X7 Other osteomyelitis, ankle and foot (principal); L03.116 Cellulitis of left lower limb; I48.0 Paroxysmal atrial fibrillation; I10 Essential (primary) hypertension; G25.81 Restless legs syndrome; E03.9 Hypothyroidism, unspecified; I25.10 Atherosclerotic heart disease of native coronary artery without angina pectoris; E78.5 Hyperlipidemia, unspecified; G47.33 Obstructive sleep apnea (adult) (pediatric); Z79.01 Long term (current) use of anticoagulants; Z95.5 Presence of coronary angioplasty implant and graft; Z88.1 Allergy status to other antibiotic agents; Z88.2 Allergy status to sulfonamides; Z88.0 Allergy status to penicillin; Z88.5 Allergy status to narcotic agent
CPT/HCPCS: 73630-LT; 78806; 80048; 80202; 85014; 85018; 85025; 87015; 87040; 87070; 87075; 87077; 87102; 87116; 87186; 87205; 88304; 88307; 88311; 93005; 97161-GP; 97164-GP; A9270-GY; A9569; J1170; J2250; J2370; J2405; J3010; J3370

== ENCOUNTER 2016-07-22 18:06 | Inpatient (IN) | payer BC ==
--- NOTE | ~2016-07-22 | IDS ---
Interim Discharge Summary [facility] [address] [place]. [address] NAME: RACIEL WEBB : 50 STATUS : ADM IN [facility]#: [id number] AGE: 66 ADM/REG DATE : 07/22/16 MR#: [id number] REPORT SERV DATE: 07/27/16 DICTATED BY: WIL HAZEL DATE: 07/27/16 REPORT STATUS : Draft TRANSCRIBED BY: MODL DATE: 07/27/16 ADMISSION DATE: 07/22/2016 DISCHARGE DATE: HISTORY OF PRESENT ILLNESS: Ms. Webb is a 66-year-old female with a history of hypertension, hyperlipidemia, psoriatic arthritis, and restless legs syndrome, who presented to the hospital as a direct transfer from Dr. Mendoza's office with complaints of cellulitis at the amputation site concerning for osteomyelitis. For further details, please refer to H and P dictated by Dr. Huitron on 07/22/2016. Briefly, Ms. Webb was recently admitted in 06/2016 with osteomyelitis of the fifth metatarsal. She is status post transmetatarsal amputation. Status post procedure, the patient's margins were clean, and the patient was discharged on oral doxycycline. The patient had postoperative followup with Dr. Mendoza. Upon presentation to his office, he noted erythema of the amputation site and referred the patient for inpatient admission for further evaluation. For further details, please refer to consultation note dictated by Dr. Mendoza on 07/23/2016. Upon presentation to the hospital, the patient was started on vancomycin and cefepime per ID recommendations, and Infectious Disease was consulted. The patient appeared to respond very well to antibiotics with significant improvement of her leg cellulitis. Podiatry was subsequently consulted. Per Podiatry evaluation, the wound looked to be healing adequately. However, the patient was kept on IV antibiotics, vancomycin, and cefepime due to concern still of osteomyelitis. During her hospital course, initially upon initial presentation, her white count trended back to normal; however, subsequently after that, her white count up trended again. The patient became tachycardic, tachypneic, and met sepsis criteria. Given that she was already on adequate antibiotic coverage, management was continued and the patient kept in-house for further monitoring. Also, on 07/26/2016, the patient had a brief episode of significant dyspnea with desaturation to 88%. She was placed on nasal cannula with subsequent improvement. Given the acuity of her shortness of breath, per discussions with ID, a CTA of the chest was obtained to rule out pulmonary embolism as the etiology. Study came back negative. However, chest x-ray did note infiltrates on the upper lung rojas with the radiologic read concerning for pneumonia; however, clinically, the patient did not fit the picture for pneumonia. She was afebrile, and also she was already on adequate antibiotic coverage. Given that the patient has been on IV fluids, her IV fluids were discontinued, and the patient will be started on Lasix for three doses. The discharge plan at this point is pending discharge from Infectious Disease and Podiatry. The patient has remained hemodynamically stable and has been afebrile; however, her white count has remained elevated. INTERIM DISCHARGE DIAGNOSES: 1. Leukocytosis. 2. Left foot cellulitis. 3. Hyperlipidemia. 4. Gastroesophageal reflux disease. 5. Hypertension. 6. Restless legs syndrome. 7. Psoriatic arthritis. Interim Discharge Summary [address] [address] NAME: RACIEL WEBB : 50 STATUS : ADM IN PAT#: [id number] AGE: 66 ADM/REG DATE : 07/22/16 MR#: [id number] REPORT SERV DATE: 07/27/16 DICTATED BY: WIL HZAEL DATE: 07/27/16 REPORT STATUS : Draft TRANSCRIBED BY: TOMÁS DATE: 07/27/16 IMAGING: Radiographs of left foot: Impression, amputation of all five left toes at the proximal metatarsal level. No separate abnormalities. CTA chest: Impression, no pulmonary emboli. Disposition and discharge planning will be per oncoming physician. KATLIN/TOMÁS Wil Hazel MD / [id number] CC: MD Sammy Olea MD
--- NOTE | ~2016-07-22 | DS ---
Discharge Summary [facility] [address] [place]. [address] NAME: RACIEL WEBB : 50 STATUS : DIS IN PAT#: [id number] AGE: 66 ADM/REG DATE : 07/22/16 MR#: [id number] REPORT SERV DATE: 07/30/16 DICTATED BY: KARLA DOBBS DATE: 07/29/16 REPORT STATUS : Draft TRANSCRIBED BY: MODL DATE: 07/29/16 ADMISSION DATE: 07/22/2016 DISCHARGE DATE: 07/29/2016 DISCHARGE MEDICATIONS: Lasix 40 p.o. daily; KCl 10 mEq p.o. daily as well as BuSpar 15 p.o. t.i.d.; Bentyl 10 p.o. b.i.d.; Cymbalta 60 p.o. daily; as well as Eliquis 5 p.o. b.i.d.; gabapentin 300 p.o. at bedtime; Klonopin 1 p.o. at bedtime; Synthroid 125 p.o. q.a.m.; Claritin 10 p.o. daily; as well as Remeron 45 p.o. bedtime, I will try to reduce it as an outpatient; multivitamin one tablet p.o. daily; Toprol-XL 100 p.o. at bedtime; as well as Mirapex 1.5 p.o. t.i.d.; pravastatin 20 p.o. at bedtime, could consider transition that to Lipitor given history of CAD and now ischemic cardiomyopathy with LVEF 30%; Klonopin 0.5 p.o. daily at home; vancomycin 1 g IV q.12h through 08/04/2016; DuoNeb p.r.n., would hold the after antibiotics; tramadol 50 p.o. t.i.d. p.r.n.; Lortab 5/325 p.o. b.i.d. FOLLOWUP: With Dr. Mendoza as prescribed. Followup with Dr. Solano in one week at the office. Walking O2 tested, qualified continuous. Followup with PCP in two weeks. See prior lab testing including CBC, CMP, vanc trough through 07/30/2016. HOSPITAL COURSE: A 66-year-old female with history of hypertension, hyperlipidemia, and psoriatic arthritis on Otezla, restless legs syndrome, who came in as direct admission to Dr. Schreiber office with cellulitis for which had originally amputation for osteomyelitis of the 5th metatarsal in June of 2016, had transmetatarsal amputation, status post procedure. Margins were clean, she was discharged on oral doxycycline at that time, and then had postoperative follow up with Dr. Mendoza. Noted to have erythema at the amputation site, placed on vancomycin and cefepime with improvement of leg cellulitis. Podiatry stated that the wound appeared to be healing adequately. White count improved. The patient though was still hypoxic and had to be diuresed with q.a. dosing Lasix. Was concerned about possible heart failure given her orthopnea, for which she had a CT of the chest to rule out any PE but had a right hilar infiltration with a subsequent PA lateral chest x-ray after diuresis that had cleared indicating likely pulmonary edema. Reference to an echo in January 2016, which EF was noted to be 30%. The patient was unaware of her diagnosis of heart failure. She should see her test engineer nuclear equipment. Consider possible ischemic workup as well. As a result, we will also add an ARB to the Toprol-XL the HCTZ with ARB. The patient is amenable for discharge, wants to go home. I educated on 2 g sodium restricted diet. CONSULTS: Dr. Mendoza and Dr. Solano. Follow wound care orders. Her walking oxygen challenge done. DISCHARGE DIAGNOSIS: 1. Sepsis due to cellulitis of the left foot. 2. Hyperlipidemia. Discharge Summary [address] [place]. [address] NAME: RACIEL WEBB : 50 STATUS : DIS IN PAT#: [id number] AGE: 66 ADM/REG DATE : 07/22/16 MR#: [id number] REPORT SERV DATE: 07/30/16 DICTATED BY: KARLA DOBBS DATE: 07/29/16 REPORT STATUS : Draft TRANSCRIBED BY: MODL DATE: 07/29/16 3. Gastroesophageal reflux disease. 4. Chronic heart failure. 5. Psoriatic arthritis. 6. Restless legs syndrome. All questions were answered. It took over 30 minutes to do. ADDENDUM The patient's echo actually not found on separate chart. Apparently, the patient has consideration for diastolic heart failure, does not have any confirmed, EF of 30%, but she should still follow up with her test engineer nuclear equipment. Empirically will be placed on losartan. Continue her Lasix given her orthopnea. All questions were answered. It took over 30 minutes to do. DICTATED BY: DO TANYA Sahni/JEANNETTEL Karla Dobbs DO / [id number] / [id number] CC: DO Sammy Sahni MD
--- NOTE | ~2016-07-22 | CN ---
Consultation Report [facility] [address] [place]. [address] NAME: RACIEL WEBB : 50 STATUS : ADM IN PAT#: [id number] AGE: 66 ADM/REG DATE : 07/22/16 MR#: [id number] REPORT SERV DATE: 07/23/16 DICTATED BY: MAK MENDOZA DATE: 07/23/16 REPORT STATUS : Draft TRANSCRIBED BY: MODL DATE: 07/23/16 INFECTIOUS DISEASE CONSULTATION DATE OF CONSULTATION: 07/23/2016 REASON FOR CONSULTATION: Cellulitis. HISTORY OF PRESENT ILLNESS: This is a 66-year-old female, well known to me from her recent inpatient admission in June, when she underwent a left foot transmetatarsal amputation for osteomyelitis of the fifth metatarsal in the setting of previous foot surgeries as outlined in my consult of 07/03/2016. Preoperative wound culture grew MRSA in the broth. Intraoperative culture grew E coli in the broth only and this grew up late. All the bone margins were free of evidence of inflammation or infection. She was discharged on oral doxycycline, but developed gastrointestinal side effects from it and had to stop it early. She has a long history of tolerating oral antibiotics poorly. Initially though, she was doing well, but over the past days had developed some increasing swelling, redness, and some pain in the foot. She saw Dr. Ty, two days ago, and I saw her in the office yesterday, and she had obvious cellulitis of the foot with a lot of associated edema. We agreed that admission would be best for IV antibiotics. She was started on vancomycin and cefepime, and her foot looks better today, and her white blood cell count is down as outlined below. She has had no fevers. PAST MEDICAL HISTORY: Unchanged from the previous consultation and most notable for atrial fibrillation, hypertension, coronary artery disease, and peripheral neuropathy. ALLERGIES: INTOLERANT OF SULFA AND AUGMENTIN AND NOW ALSO DOXYCYCLINE. OUTPATIENT MEDICATIONS: Include Eliquis, BuSpar, Klonopin, vitamin B12, Bentyl, Cymbalta, Lasix, Neurontin p.r.n., hydrocodone, levothyroxine, Claritin, metoprolol, Remeron, multivitamins, Protonix, potassium chloride, Mirapex, Pravachol, tramadol p.r.n., and Otezla. The Otezla is prescribed by her reagent tender Dr. Pulido for her history of psoriatic arthritis. SOCIAL HISTORY: Unchanged. FAMILY HISTORY: Unchanged. REVIEW OF SYSTEMS: Otherwise, negative. PHYSICAL EXAMINATION: VITAL SIGNS: The patient weighs 77 kg. She has been afebrile since admission. Blood pressure 126/65, pulse 88, respiratory rate 14. HEAD AND NECK: Shows clear oral cavity. No thrush. Consultation Report [address] [place]. [address] NAME: RACIEL WEBB : 50 STATUS : ADM IN PAT#: [id number] AGE: 66 ADM/REG DATE : 07/22/16 MR#: [id number] REPORT SERV DATE: 07/23/16 DICTATED BY: MAK MENDOZA DATE: 07/23/16 REPORT STATUS : Draft TRANSCRIBED BY: TOMÁS DATE: 07/23/16 LUNGS: Clear to auscultation. CARDIAC: Without murmur, gallop, or rub. ABDOMEN: Nondistended, soft, and nontender. CHEST: Shows a port in the left upper chest. EXTREMITIES: Left foot is status post transmetatarsal amputation. There is soft tissue edema and mild erythema of the distal third of the foot which is significantly improved compared to yesterday's exam in the office. There is associated warmth. The wound is healing well. She did have some bleeding from some part of the wound this morning, but I can not identify that site now. LABORATORY STUDIES: Admission white blood cell count was 13.4, today 8.6, hemoglobin 10.0, platelets 317. Creatinine 0.88. Albumin 2.4. Liver function tests normal. C-reactive protein is 36.1. X-ray of the left foot shows postoperative changes, but no other abnormalities. IMPRESSION: Cellulitis of the left foot in a patient who underwent transmetatarsal amputation about two and a half weeks ago. Overall, I doubt underlying abscess or early osteomyelitis here and I am pleased by the evidence of improvement that she already has on exam. I suspect this is a Staph strep infection, but I have preferred to cover gram- negative rods initially here in part given the E coli that grew in the broth from her last procedure. She tolerates oral antibiotic therapy very poorly. She also is on Otezla for her psoriatic arthritis. PLAN: 1. For today, we will continue the vancomycin and cefepime. 2. Anticipate discharge tomorrow or the next day, on home IV antibiotics, likely vancomycin, perhaps with oral Ceftin and oral quinolone. 3. Consider holding Otezla until this infection is more completely resolved. We can discuss that with Dr. Pulido. SOCO/TOMÁS Mak Mendoza M.D. / [id number] CC: MD Sammy Olea MD C. Jason Wamack, D.PRoman Pulido M.D.
--- NOTE | ~2016-07-22 | HP ---
History And Physical [id number] [place]. [address] NAME: RACIEL WEBB : 50 STATUS : ADM IN [facility]#: [id number] AGE: 66 ADM/REG DATE : 07/22/16 MR#: [id number] REPORT SERV DATE: 07/22/16 DICTATED BY: NUPUR RIVERS DATE: 07/22/16 REPORT STATUS : Draft TRANSCRIBED BY: MODL DATE: 07/22/16 DATE OF ADMISSION: 07/22/2016 CHIEF COMPLAINT: Possible osteomyelitis of the left foot. HISTORY OF PRESENT ILLNESS: History of present illness obtained from the patient as well as from reports from Dr. Mendoza, Infectious Disease, had requested a direct admission to the hospital as well as prior medical records which were thoroughly reviewed. According to the information available, the patient is a pleasant 66-year-old white woman with history of peripheral neuropathy, immunocompromised, who was actually recently admitted and treated in our hospital under the service of Dr. Ty, systematic theology professor, for infection of the left foot with left foot transmetatarsal amputation on 07/05/2016. At that time, the surgical margins were clean of the inflammation or suspicious for infection. The patient was discharged home on doxycycline 100 mg p.o. b.i.d. The patient apparently has done fair for a while, and in followup today in the office with Dr. Mendoza, the patient was noticed to have increased redness, swelling with the signs of inflammation, and possible infection; therefore, Dr. Mendoza has referred her to the Hospitalist Service as a direct admission for further management and evaluation and the re-consultation with Dr. Ty, systematic theology professor, for possible further surgical intervention. The patient stated that she had noticed lately increased pain in the surgical stump as well as increased swelling not only on the left foot remnant, but also proximally towards the ankle and left leg. No fever or chills were reported, but increasing pain and tingling as mentioned above. PAST MEDICAL HISTORY: Significant for psoriatic arthritis on Otezla, followed by Dr. 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 Akhil MURPHY; history of hyperlipidemia; history of hypothyroidism, acquired; history of GERD, hiatal hernia, and gastric polyps; history of prior bilateral foot ulcers; known diabetic with ulcers; history of depression and anxiety; history of restless legs syndrome; history of obstructive sleep apnea? if on CPAP at home. PAST SURGICAL HISTORY: Multiple surgical surgeries on the feet with amputations, most recent in June 2016 with TMA of the left foot, history of spinal stimulator implant, history of bladder stimulator, history of bilateral knee surgery, hysterectomy, history of oophorectomy, cholecystectomy, appendectomy, surgical spine surgery, bladder repair, and rotator cuff surgery. SOCIAL HISTORY: Denies tobacco abuse. Denies illicit or recreational drug abuse. She uses alcohol on a very rare social occasions. and lives with family. ALLERGIES: TO SULFA ANTIBIOTICS, MORPHINE, WELL REPORTED ALLERGY TO AUGMENTIN WHICH MAKES HER NAUSEATED AND VOMITING. ALSO, ALLERGY TO SILVER FROM TEGADERM WITH LOCAL BLISTERING FORMATION. History And Physical [address] [address] NAME: RACIEL WEBB : 50 STATUS : ADM IN [facility]#: [id number] AGE: 66 ADM/REG DATE : 07/22/16 MR#: [id number] REPORT SERV DATE: 07/22/16 DICTATED BY: NUPUR RIVERS DATE: 07/22/16 REPORT STATUS : Draft TRANSCRIBED BY: TOMÁS DATE: 07/22/16 FAMILY HISTORY: Significant for breast cancer, coronary artery disease, hypertension, and rheumatoid arthritis. HOME MEDICATIONS: According to list provided, the patient is supposed to take Eliquis 5 mg p.o. b.i.d., BuSpar 15 mg p.o. t.i.d., Klonopin 0.5 mg p.o. q.a.m. and 1 mg p.o. q.h.s., vitamin B12 1000 mcg subcu every month, Bentyl 10 mg p.o. b.i.d., Benadryl 25 mg p.o. daily p.r.n. allergies, Cymbalta 60 mg p.o. daily, Lasix 40 mg p.o. daily, Neurontin 900 mg p.o. q.h.s., hydrocodone 5/325 one p.o. b.i.d. p.r.n. pain, Synthroid 125 mcg p.o. daily, Claritin 10 mg p.o. daily, Toprol-XL 100 mg p.o. q.h.s., Remeron 45 mg p.o. q.h.s., multiple vitamin without mineral one tablet p.o. daily, Protonix 40 mg p.o. b.i.d., KCl potassium 10 mEq p.o. daily, Mirapex 1.5 mg p.o. t.i.d., Pravachol 20 mg p.o. q.h.s., Ultram 50 mg p.o. t.i.d. p.r.n., Otezla 30 mg p.o. b.i.d., and hormone replacement pellet implant as per outpatient schedule. REVIEW OF SYSTEMS: As per H and P, otherwise, negative in all review of systems. Please note, the comprehensive review of system was obtained and pertinent positives were including in the H and P. PHYSICAL EXAMINATION: GENERAL: Pleasant, cooperant, pale, ill appearing, likely chronic, close to her baseline. VITAL SIGNS: Upon arrival on our floor, blood pressure 124/57, pulse 89 , respiratory rate 18, temperature 97.9, and oxygen saturation 97% on room air. HEENT: Pupils are equal, round, and reactive to light. Extraocular movements are intact. Throat, mild erythema. No exudate. NECK: Supple. No JVD. No bruit. No thyromegaly. No lymph nodes. LUNGS: Bilateral air entry with few dry bibasilar crackles at bases. No wheezing. Good airway movement. HEART: Positive S1 and S2. Regular rate and rhythm. Positive soft mitral regurgitation murmur at the apex. No rub. No gallop. PMI not displaced. ABDOMEN: Positive bowel sounds. Soft and nontender. No guarding. No hepatosplenomegaly. EXTREMITIES: Decreased range of motion and osteoarthritic changes. No clubbing. No cyanosis. No edema. Please note, right foot status post prior midfoot amputation with no signs of infection. Left foot shows swelling, redness, status post prior TMA with wound on the lateral aspect with erythema and necrosis with increasing redness, swelling, and warmth towards the distal leg. NEUROLOGIC: Alert and oriented x3. Grossly nonfocal. Appropriate mood and affect. Cranial nerves II through XII are grossly intact. Motor strength 5/5 symmetrical and bilateral. Deep tendon reflexes 2/2 symmetrical and bilateral. BACK: With decreased range of motion. Bilateral focal localized tenderness. No CVA tenderness. SKIN: No bruises. No rashes. No lacerations (besides the above-mentioned changes of the left foot area). SIGNIFICANT LABORATORY DATA: No laboratory data available as the patient is a direct admission on the Hospitalist Service. History And Physical [address] [address] NAME: RACIEL WEBB : 50 STATUS : ADM IN [facility]#: [id number] AGE: 66 ADM/REG DATE : 07/22/16 MR#: [id number] REPORT SERV DATE: 07/22/16 DICTATED BY: NUPUR RIVERS DATE: 07/22/16 REPORT STATUS : Draft TRANSCRIBED BY: TOMÁS DATE: 07/22/16 ASSESSMENT AND PLAN AND PROBLEM LIST: The patient is a pleasant 66-year-old white woman, admitted as a direct admission at the request of the infectious disease portrait consultant due to likely recurrence of osteomyelitis of the left foot stump with history of methicillin- resistant Staphylococcus aureus infection. IMPRESSION: 1. Osteomyelitis of left foot stump with status post recent I and D and resection with known history of methicillin-resistant Staphylococcus aureus infection in the past. For all the above, we are going to obtain blood cultures. We are going to obtain imaging of the left foot. Continue antibiotics as recommended by Infectious Disease with vancomycin. We are going to use cefepime instead of Zosyn due to reported allergy to Augmentin until further clarification to be done by Infectious Disease and by Pharmacy in a.m. Check CRP. Hold Eliquis for now with the presumption of possible surgical intervention. 2. Immunocompromised status. 3. Cardiovascular with:. a. Hypertension, essential type, presently controlled. Continue medications. Use IV hydralazine p.r.n. for increased blood pressure. b. Paroxysmal atrial fibrillation, present on admission, presently in normal sinus rhythm. c. Coronary artery disease, status post prior myocardial infarction with the percutaneous coronary intervention, presently stable. Continue medication. 4. Obstructive sleep apnea? if the patient on CPAP. We are going to encourage CPAP usage. Use p.r.n. bronchodilators and p.r.n. oxygen supplementation. 5. Psoriatic arthritis, on Otezla, to be continued despite the patient having this infectious process. Continue adequate pain control. 6. Endocrinologic problem. a. Hyperlipidemia, mixed type. Continue Pravachol, low-cholesterol diet. b. Hypothyroid, acquired. Continue Synthroid. Continue to monitor. 7. Neurologic problem with:. a. Restless legs syndrome. Continue medications. b. Depression and anxiety. Provide emotional support and continue medications including Klonopin. c. Peripheral neuropathy due to underlying medical decondition. We are going to continue Neurontin for now. Provide adequate pain control. 8. Gastroesophageal reflux disease and hiatal hernia. Continue PPI with Protonix 40 mg p.o. b.i.d. 9. Chronic anticoagulation, on Eliquis. We are going to hold Eliquis for now due to possible surgical intervention. PROGNOSIS: Moderate for this admission. Discussed with the patient. Questions were answered in full. Please note also the written H and P and written orders and instructions. Please note, the patient is a full code at this moment as discussed with the patient at bedside. History And Physical [address] [address] NAME: RACIEL WEBB : 50 STATUS : ADM IN [facility]#: [id number] AGE: 66 ADM/REG DATE : 07/22/16 MR#: [id number] REPORT SERV DATE: 07/22/16 DICTATED BY: NUPUR RIVERS DATE: 07/22/16 REPORT STATUS : Draft TRANSCRIBED BY: TOMÁS DATE: 07/22/16 RF/TOMÁS Nupur Rivers M.D. / [id number] CC: MD Sammy Olea MD Richard Brackett, M.D. C. Jason Wamack, D.P.M. Hal Hill, M.D.
[~2016-07-22 18:06] MED LIST changes: +CLARIT10 PO; +CYMBALTA60 PO; +LEVOTHYROXIN125 MCG PO; +REMERON45 MG PO
[2016-07-22 20:26] LABS: BASOPHILS 0.3 %; BASOPHILS ABSOLUTE 0.04 10/3/uL (0.0-0.16); EOSINOPHILS 1.9 %; EOSINOPHILS ABSOLUTE 0.26 10/3/uL (0.0-0.53); HEMATOCRIT 33.7 % (36.0-48.0); IMMATURE GRANULOCYTES 0.5 %; IMMATURE GRANULOCYTES ABSOLUTE 0.07 10/3/uL (0.0-0.11); LYMPHOCYTES ABSOLUTE 2.82 10/3/uL (0.67-4.30); MEAN CORPUS HGB CONC 32.6 g/dL (32.0-36.0); MEAN CORPUSCULAR VOLUME 91.8 fL (80-100); MEAN PLATELET VOLUME 9.9 fL (9.2-13.0); MONOCYTES 6.3 %; MONOCYTES ABSOLUTE 0.85 10/3/uL (0.21-1.20); NEUTROPHILS ABSOLUTE 9.39 10/3/uL (2.02-8.40); PLATELET COUNT 379 10/3/uL (150-400); RBC DISTRIBUTION WIDTH 14.5 % (12.0-16.0); RED CELL COUNT 3.67 10/6/uL (4.0-5.6); WHITE BLOOD CELLS 13.4 10/3/uL (4.5-10.5)
[2016-07-22 20:27] LABS: MANUAL DIFF NO %
[2016-07-22 20:41] LABS: BUN (BLOOD UREA NITROGEN) 10 MG/DL (6-23); CALCIUM, SERUM 9.9 MG/DL (8.5-10.4); CHLORIDE, SERUM 104 MMOL/L (96-112); CO2 (CARBON DIOXIDE) 27 MMOL/L (24-34); CREATININE 1.01 MG/DL (0.55-1.02); GFR AFRICAN AMERICAN 67 ML/MIN (>=60); GFR NON AFRICAN AMERICAN 58 ML/MIN (>=60); GLUCOSE, SERUM 117 MG/DL (60-99); POTASSIUM, SERUM 3.4 MMOL/L (3.5-5.3); SGOT(AST) 13 U/L (5-40); SGPT(ALT) 15 U/L (5-65); TOTAL BILIRUBIN 0.3 MG/DL (0-1.2)
[2016-07-22 20:42] LABS: A/G RATIO 0.6 (0.7-1.9); ALBUMIN 3.2 G/DL (3.5-5.0); ALKALINE PHOSPHATASE 115 U/L (45-117); C-REACTIVE PROTEIN 36.1 MG/L (<8.0); GLOBULIN 5.7 G/DL (2.5-4.1); SODIUM, SERUM 129 MMOL/L (135-148); TOTAL PROTEIN 8.9 G/DL (6.0-8.5)
[2016-07-22] MEDS ORDERED: PROTONIX PO (21:51)
[2016-07-22] MEDS ORDERED: PRAVAC PO (21:52)
[2016-07-22 22:33] LABS: INTERNATIONAL NORMAL RATI 1.3 UNITS (-); PARTIAL THROMBO TIME 33.7 SEC (22.5-37.2); PROTIME (NOT ORD) 15.8 SEC (12.0-14.5)
[2016-07-23 05:42] LABS: BASOPHILS 0.4 %; BASOPHILS ABSOLUTE 0.03 10/3/uL (0.0-0.16); EOSINOPHILS 2.8 %; EOSINOPHILS ABSOLUTE 0.24 10/3/uL (0.0-0.53); HEMATOCRIT 30.9 % (36.0-48.0); IMMATURE GRANULOCYTES 0.6 %; IMMATURE GRANULOCYTES ABSOLUTE 0.05 10/3/uL (0.0-0.11); LYMPHOCYTES 29.1 %; LYMPHOCYTES ABSOLUTE 2.49 10/3/uL (0.67-4.30); MEAN CORPUS HGB CONC 32.4 g/dL (32.0-36.0); MEAN CORPUSCULAR HEMOGLOB 29.7 pg (26.0-34.0); MEAN CORPUSCULAR VOLUME 91.7 fL (80-100); MEAN PLATELET VOLUME 9.6 fL (9.2-13.0); MONOCYTES 7.4 %; MONOCYTES ABSOLUTE 0.63 10/3/uL (0.21-1.20); NEUTROPHILS 59.7 %; NEUTROPHILS ABSOLUTE 5.12 10/3/uL (2.02-8.40); PLATELET COUNT 317 10/3/uL (150-400); RBC DISTRIBUTION WIDTH 14.5 % (12.0-16.0); RED CELL COUNT 3.37 10/6/uL (4.0-5.6); WHITE BLOOD CELLS 8.6 10/3/uL (4.5-10.5)
[2016-07-23 05:46] LABS: MANUAL DIFF NO %
[2016-07-23 05:59] LABS: BUN (BLOOD UREA NITROGEN) 10 MG/DL (6-23); CHLORIDE, SERUM 106 MMOL/L (96-112); CO2 (CARBON DIOXIDE) 28 MMOL/L (24-34); CREATININE 0.88 MG/DL (0.55-1.02); GFR AFRICAN AMERICAN 79 ML/MIN (>=60); GFR NON AFRICAN AMERICAN 68 ML/MIN (>=60); GLUCOSE, SERUM 98 MG/DL (60-99); POTASSIUM, SERUM 3.9 MMOL/L (3.5-5.3)
[2016-07-23 06:07] LABS: ALBUMIN 2.4 G/DL (3.5-5.0); CALCIUM, SERUM 8.8 MG/DL (8.5-10.4); PHOSPHORUS, SERUM 4.3 MG/DL (2.5-4.5); SODIUM, SERUM 141 MMOL/L (135-148)
[2016-07-24 06:54] LABS: BASOPHILS 0.2 %; BASOPHILS ABSOLUTE 0.03 10/3/uL (0.0-0.16); EOSINOPHILS 1.4 %; EOSINOPHILS ABSOLUTE 0.21 10/3/uL (0.0-0.53); HEMATOCRIT 31.4 % (36.0-48.0); HEMOGLOBIN 10.4 g/dL (12.0-16.0); IMMATURE GRANULOCYTES 0.3 %; IMMATURE GRANULOCYTES ABSOLUTE 0.04 10/3/uL (0.0-0.11); LYMPHOCYTES ABSOLUTE 1.61 10/3/uL (0.67-4.30); MEAN CORPUS HGB CONC 33.1 g/dL (32.0-36.0); MEAN CORPUSCULAR HEMOGLOB 30.4 pg (26.0-34.0); MEAN CORPUSCULAR VOLUME 91.8 fL (80-100); MEAN PLATELET VOLUME 9.8 fL (9.2-13.0); MONOCYTES 4.8 %; NEUTROPHILS 82.3 %; NEUTROPHILS ABSOLUTE 12.03 10/3/uL (2.02-8.40); PLATELET COUNT 274 10/3/uL (150-400); RBC DISTRIBUTION WIDTH 14.6 % (12.0-16.0); RED CELL COUNT 3.42 10/6/uL (4.0-5.6)
[2016-07-24 06:55] LABS: WHITE BLOOD CELLS 14.6 10/3/uL (4.5-10.5)
[2016-07-24 06:56] LABS: MANUAL DIFF NO %
[2016-07-24 07:07] LABS: A/G RATIO 0.5 (0.7-1.9); ALBUMIN 2.6 G/DL (3.5-5.0); ALKALINE PHOSPHATASE 108 U/L (45-117); BUN (BLOOD UREA NITROGEN) 10 MG/DL (6-23); CALCIUM, SERUM 8.8 MG/DL (8.5-10.4); CHLORIDE, SERUM 107 MMOL/L (96-112); CO2 (CARBON DIOXIDE) 27 MMOL/L (24-34); CREATININE 0.84 MG/DL (0.55-1.02); GFR AFRICAN AMERICAN 84 ML/MIN (>=60); GFR NON AFRICAN AMERICAN 72 ML/MIN (>=60); GLOBULIN 4.9 G/DL (2.5-4.1); GLUCOSE, SERUM 112 MG/DL (60-99); POTASSIUM, SERUM 3.7 MMOL/L (3.5-5.3); SGOT(AST) 10 U/L (5-40); SGPT(ALT) 11 U/L (5-65); SODIUM, SERUM 142 MMOL/L (135-148); TOTAL BILIRUBIN 0.2 MG/DL (0-1.2); TOTAL PROTEIN 7.5 G/DL (6.0-8.5)
[2016-07-24 11:47] LABS: PROCALCITONIN <0.05 ng/mL (<0.5)
[2016-07-25 06:11] LABS: BASOPHILS 0.2 %; BASOPHILS ABSOLUTE 0.03 10/3/uL (0.0-0.16); EOSINOPHILS 1.9 %; EOSINOPHILS ABSOLUTE 0.24 10/3/uL (0.0-0.53); HEMOGLOBIN 8.5 g/dL (12.0-16.0); IMMATURE GRANULOCYTES 0.5 %; IMMATURE GRANULOCYTES ABSOLUTE 0.06 10/3/uL (0.0-0.11); LYMPHOCYTES 15.2 %; LYMPHOCYTES ABSOLUTE 1.97 10/3/uL (0.67-4.30); MEAN CORPUS HGB CONC 32.2 g/dL (32.0-36.0); MEAN CORPUSCULAR HEMOGLOB 29.6 pg (26.0-34.0); MEAN PLATELET VOLUME 9.6 fL (9.2-13.0); MONOCYTES 5.4 %; NEUTROPHILS 76.8 %; NEUTROPHILS ABSOLUTE 9.95 10/3/uL (2.02-8.40); PLATELET COUNT 237 10/3/uL (150-400); RBC DISTRIBUTION WIDTH 15.1 % (12.0-16.0); RED CELL COUNT 2.87 10/6/uL (4.0-5.6)
[2016-07-25 06:19] LABS: HEMATOCRIT 26.4 % (36.0-48.0); MANUAL DIFF NO %
[2016-07-26 05:21] LABS: BASOPHILS 0.2 %; BASOPHILS ABSOLUTE 0.03 10/3/uL (0.0-0.16); EOSINOPHILS 2.3 %; HEMATOCRIT 26.2 % (36.0-48.0); HEMOGLOBIN 8.4 g/dL (12.0-16.0); IMMATURE GRANULOCYTES 0.5 %; IMMATURE GRANULOCYTES ABSOLUTE 0.07 10/3/uL (0.0-0.11); LYMPHOCYTES 18.6 %; LYMPHOCYTES ABSOLUTE 2.41 10/3/uL (0.67-4.30); MANUAL DIFF NO %; MEAN CORPUS HGB CONC 32.1 g/dL (32.0-36.0); MEAN CORPUSCULAR HEMOGLOB 29.5 pg (26.0-34.0); MEAN CORPUSCULAR VOLUME 91.9 fL (80-100); MEAN PLATELET VOLUME 9.6 fL (9.2-13.0); MONOCYTES 7.4 %; MONOCYTES ABSOLUTE 0.96 10/3/uL (0.21-1.20); NEUTROPHILS ABSOLUTE 9.19 10/3/uL (2.02-8.40); PLATELET COUNT 223 10/3/uL (150-400); RBC DISTRIBUTION WIDTH 14.8 % (12.0-16.0); RED CELL COUNT 2.85 10/6/uL (4.0-5.6)
[2016-07-26 05:38] LABS: A/G RATIO 0.5 (0.7-1.9); ALBUMIN 2.3 G/DL (3.5-5.0); ALKALINE PHOSPHATASE 102 U/L (45-117); BUN (BLOOD UREA NITROGEN) 9 MG/DL (6-23); CALCIUM, SERUM 8.6 MG/DL (8.5-10.4); CHLORIDE, SERUM 106 MMOL/L (96-112); CO2 (CARBON DIOXIDE) 28 MMOL/L (24-34); CREATININE 0.92 MG/DL (0.55-1.02); GFR AFRICAN AMERICAN 75 ML/MIN (>=60); GFR NON AFRICAN AMERICAN 65 ML/MIN (>=60); GLOBULIN 4.6 G/DL (2.5-4.1); POTASSIUM, SERUM 3.8 MMOL/L (3.5-5.3); SGOT(AST) 18 U/L (5-40); SGPT(ALT) 13 U/L (5-65); SODIUM, SERUM 137 MMOL/L (135-148); TOTAL BILIRUBIN 0.2 MG/DL (0-1.2); TOTAL PROTEIN 6.9 G/DL (6.0-8.5)
[2016-07-26 05:39] LABS: GLUCOSE, SERUM 137 MG/DL (60-99)
[2016-07-27 05:19] LABS: BASOPHILS 0.2 %; BASOPHILS ABSOLUTE 0.03 10/3/uL (0.0-0.16); EOSINOPHILS ABSOLUTE 0.13 10/3/uL (0.0-0.53); HEMATOCRIT 26.1 % (36.0-48.0); HEMOGLOBIN 8.6 g/dL (12.0-16.0); IMMATURE GRANULOCYTES 0.3 %; IMMATURE GRANULOCYTES ABSOLUTE 0.04 10/3/uL (0.0-0.11); LYMPHOCYTES 11.4 %; MEAN CORPUSCULAR HEMOGLOB 29.6 pg (26.0-34.0); MEAN CORPUSCULAR VOLUME 89.7 fL (80-100); MEAN PLATELET VOLUME 10.4 fL (9.2-13.0); MONOCYTES 6.2 %; MONOCYTES ABSOLUTE 0.81 10/3/uL (0.21-1.20); NEUTROPHILS 80.9 %; NEUTROPHILS ABSOLUTE 10.61 10/3/uL (2.02-8.40); PLATELET COUNT 228 10/3/uL (150-400); RBC DISTRIBUTION WIDTH 14.6 % (12.0-16.0); RED CELL COUNT 2.91 10/6/uL (4.0-5.6); WHITE BLOOD CELLS 13.1 10/3/uL (4.5-10.5)
[2016-07-27 05:20] LABS: MANUAL DIFF NO %
[2016-07-27 05:37] LABS: A/G RATIO 0.5 (0.7-1.9); ALBUMIN 2.2 G/DL (3.5-5.0); ALKALINE PHOSPHATASE 105 U/L (45-117); BUN (BLOOD UREA NITROGEN) 7 MG/DL (6-23); CALCIUM, SERUM 8.6 MG/DL (8.5-10.4); CHLORIDE, SERUM 107 MMOL/L (96-112); CO2 (CARBON DIOXIDE) 24 MMOL/L (24-34); CREATININE 0.87 MG/DL (0.55-1.02); GFR AFRICAN AMERICAN 80 ML/MIN (>=60); GFR NON AFRICAN AMERICAN 69 ML/MIN (>=60); GLOBULIN 4.8 G/DL (2.5-4.1); GLUCOSE, SERUM 122 MG/DL (60-99); POTASSIUM, SERUM 3.5 MMOL/L (3.5-5.3); SGOT(AST) 19 U/L (5-40); SGPT(ALT) 13 U/L (5-65); SODIUM, SERUM 138 MMOL/L (135-148); TOTAL BILIRUBIN 0.4 MG/DL (0-1.2)
[2016-07-27 06:35] LABS: PROCALCITONIN 0.08 ng/mL (<0.5)
[2016-07-28 07:03] LABS: BASOPHILS 0.4 %; BASOPHILS ABSOLUTE 0.04 10/3/uL (0.0-0.16); EOSINOPHILS 2.7 %; HEMOGLOBIN 9.7 g/dL (12.0-16.0); IMMATURE GRANULOCYTES 0.5 %; IMMATURE GRANULOCYTES ABSOLUTE 0.06 10/3/uL (0.0-0.11); LYMPHOCYTES 15.1 %; LYMPHOCYTES ABSOLUTE 1.68 10/3/uL (0.67-4.30); MEAN CORPUSCULAR HEMOGLOB 29.2 pg (26.0-34.0); MEAN CORPUSCULAR VOLUME 91.3 fL (80-100); MEAN PLATELET VOLUME 9.9 fL (9.2-13.0); MONOCYTES 6.7 %; MONOCYTES ABSOLUTE 0.74 10/3/uL (0.21-1.20); NEUTROPHILS 74.6 %; NEUTROPHILS ABSOLUTE 8.29 10/3/uL (2.02-8.40); PLATELET COUNT 295 10/3/uL (150-400); RBC DISTRIBUTION WIDTH 14.9 % (12.0-16.0); RED CELL COUNT 3.32 10/6/uL (4.0-5.6); WHITE BLOOD CELLS 11.1 10/3/uL (4.5-10.5)
[2016-07-28 07:06] LABS: HEMATOCRIT 30.3 % (36.0-48.0); MANUAL DIFF NO %
[2016-07-28 07:19] LABS: A/G RATIO 0.5 (0.7-1.9); ALBUMIN 2.5 G/DL (3.5-5.0); ALKALINE PHOSPHATASE 116 U/L (45-117); BUN (BLOOD UREA NITROGEN) 9 MG/DL (6-23); CALCIUM, SERUM 9.2 MG/DL (8.5-10.4); CREATININE 1.04 MG/DL (0.55-1.02); GFR AFRICAN AMERICAN 65 ML/MIN (>=60); GFR NON AFRICAN AMERICAN 56 ML/MIN (>=60); GLOBULIN 5.5 G/DL (2.5-4.1); SGOT(AST) 12 U/L (5-40); SGPT(ALT) 13 U/L (5-65); SODIUM, SERUM 140 MMOL/L (135-148); TOTAL BILIRUBIN 0.5 MG/DL (0-1.2); VANCOMYCIN TROUGH 15.6 MCG/ML (10.0-20.0)
[2016-07-28 07:20] LABS: CHLORIDE, SERUM 96 MMOL/L (96-112); CO2 (CARBON DIOXIDE) 32 MMOL/L (24-34); GLUCOSE, SERUM 147 MG/DL (60-99); POTASSIUM, SERUM 2.8 MMOL/L (3.5-5.3)
[2016-07-29 06:11] LABS: BASOPHILS 0.3 %; BASOPHILS ABSOLUTE 0.03 10/3/uL (0.0-0.16); EOSINOPHILS 4.6 %; HEMATOCRIT 31.3 % (36.0-48.0); HEMOGLOBIN 10.3 g/dL (12.0-16.0); IMMATURE GRANULOCYTES ABSOLUTE 0.09 10/3/uL (0.0-0.11); LYMPHOCYTES 27.3 %; LYMPHOCYTES ABSOLUTE 2.39 10/3/uL (0.67-4.30); MANUAL DIFF NO %; MEAN CORPUS HGB CONC 32.9 g/dL (32.0-36.0); MEAN CORPUSCULAR HEMOGLOB 29.9 pg (26.0-34.0); MEAN PLATELET VOLUME 10.1 fL (9.2-13.0); MONOCYTES ABSOLUTE 0.79 10/3/uL (0.21-1.20); NEUTROPHILS 57.8 %; NEUTROPHILS ABSOLUTE 5.06 10/3/uL (2.02-8.40); PLATELET COUNT 304 10/3/uL (150-400); RBC DISTRIBUTION WIDTH 14.8 % (12.0-16.0); RED CELL COUNT 3.44 10/6/uL (4.0-5.6); WHITE BLOOD CELLS 8.8 10/3/uL (4.5-10.5)
[2016-07-29 06:24] LABS: CALCIUM, SERUM 9.2 MG/DL (8.5-10.4); CHLORIDE, SERUM 98 MMOL/L (96-112); CO2 (CARBON DIOXIDE) 31 MMOL/L (24-34); CREATININE 1.07 MG/DL (0.55-1.02); GFR AFRICAN AMERICAN 63 ML/MIN (>=60); GFR NON AFRICAN AMERICAN 54 ML/MIN (>=60); PHOSPHORUS, SERUM 4.3 MG/DL (2.5-4.5); POTASSIUM, SERUM 3.2 MMOL/L (3.5-5.3); SODIUM, SERUM 137 MMOL/L (135-148)
[2016-07-29 06:28] LABS: BUN (BLOOD UREA NITROGEN) 15 MG/DL (6-23); GLUCOSE, SERUM 97 MG/DL (60-99)
[2016-07-29] MEDS ORDERED: DUONEB INH (11:40)
[2016-08-26] MEDS ORDERED: NYS500UDL PO (16:12)
[2016-08-26] MEDS ORDERED: MONODOX100 MG PO (16:12)
[2016-09-14] MEDS ORDERED: NORCO1 TA1 PO (22:29)
[2016-09-14] MEDS ORDERED: MELA3 PO (22:30)
[2016-09-14] MEDS ORDERED: REMERON45 MG PO (22:30)
[2016-09-14] MEDS ORDERED: PRIN5 PO (22:30)
[2016-09-14] MEDS ORDERED: B121000P IM/SC (22:30)
[2016-09-14] MEDS ORDERED: CYMBALTA60 PO (22:30)
[2016-09-14] MEDS ORDERED: TOPXL100 PO (22:32)
[2016-09-14] MEDS ORDERED: ULTRAM50 PO (22:32)
[2016-09-14] MEDS ORDERED: KLONO5 PO (22:32)
[2016-09-14] MEDS ORDERED: KLONO1 PO (22:32)
[2016-09-14] MEDS ORDERED: BENTYL10 PO (22:32)
[2016-09-14] MEDS ORDERED: NEUR300 PO (22:33)
[2016-09-14] MEDS ORDERED: PROTONIX PO (22:33)
[2016-09-14] MEDS ORDERED: MIRAPEX1.5 MG PO (22:34)
[2016-09-14] MEDS ORDERED: OTEZLA30 MG PO (22:34)
[2016-09-14] MEDS ORDERED: BUSPAR15 M1 PO (22:34)
[2016-09-14] MEDS ORDERED: ELIQUIS 5 MG TAB5 MG PO (22:35)
[2016-09-14] MEDS ORDERED: PRAVAC PO (22:35)
[2016-09-14] MEDS ORDERED: SYN125 PO (22:35)
[2016-09-14] MEDS ORDERED: L40 PO (22:35)
[2016-09-14] MEDS ORDERED: HORMONE PELLETS IM (22:36)
[2016-09-14] MEDS ORDERED: MULTIVIT/MIN PO (22:36)
[2016-09-14] MEDS ORDERED: KDUR10 PO (22:36)
[2016-09-14] MEDS ORDERED: PR12.5 PO (22:36)
[2016-09-14] MEDS ORDERED: CLARIT10 PO (22:37)
[2016-09-14] MEDS ORDERED: BEN25 PO (22:37)
[2016-09-14] MEDS ORDERED: DUONEB INH (22:37)
== END 2016-07-29 18:32 | disposition home health service (06) | DRG 564 ==
LOC: 5SO 18:06
PROVIDERS: Hospitalist; Internal Medicine; Internal Medicine Infectious Disease
DX: T87.44 Infection of amputation stump, left lower extremity (principal); A41.9 Sepsis, unspecified organism; I48.0 Paroxysmal atrial fibrillation; M86.8X7 Other osteomyelitis, ankle and foot; L40.50 Arthropathic psoriasis, unspecified; I10 Essential (primary) hypertension; F32.9 Major depressive disorder, single episode, unspecified; G25.81 Restless legs syndrome; I25.2 Old myocardial infarction; E78.5 Hyperlipidemia, unspecified; E03.9 Hypothyroidism, unspecified; K21.9 Gastro-esophageal reflux disease without esophagitis; K44.9 Diaphragmatic hernia without obstruction or gangrene; Z86.010 Personal history of colon polyps; G47.33 Obstructive sleep apnea (adult) (pediatric); Z88.2 Allergy status to sulfonamides; Z88.5 Allergy status to narcotic agent; Z88.1 Allergy status to other antibiotic agents; Z80.3 Family history of malignant neoplasm of breast; Z82.49 Family history of ischemic heart disease and other diseases of the circulatory system; Z82.61 Family history of arthritis
CPT/HCPCS: 71010; 71020; 71275; 73630-LT; 80048; 80053; 80069; 80202; 83735; 84100; 84132; 84145; 85025; 85610; 85730; 86140; 87040; 94640; A9270-GY; J0692; J1170; J2405; J3370